=== PATIENT | female | born 1990 | race Caucasian/White ===

== ENCOUNTER 2017-11-20 19:17 | Inpatient (IN) ==
[2017-11-20] MEDS ORDERED: ONDANSETRON 4 MG/2 ML VIAL IVP ONE (19:25)
[2017-11-20] MEDS ORDERED: Sodium Chloride 0.9% 1,000 ML PRIMARY IV ONE ×2 (19:25→22:50)
[2017-11-20 20:13] LABS: BASOPHILS # (AUTO) 0.08 10*3/UL; BASOPHILS % (AUTO) 0.5 % (0-1); EOSINOPHILS # (AUTO) 0.01 10*3/UL; EOSINOPHILS % (AUTO) 0.1 % (0-8); Hematocrit [HCT] 38.1 % (37.0-47.0); Hemoglobin [HGB] 13.4 g/dL (12.0-16.0); LYMPHOCYTES # (AUTO) 1.47 10*3/uL; MEAN CORPUSCULAR HEMOGLOBIN 26.5 PG (27-31); MEAN CORPUSCULAR HGB CONC 35.2 g/dL (33-37); MEAN CORPUSCULAR VOLUME 75.4 FL (81-99); MEAN PLATELET VOLUME 9.4 FL (7.4-12.2); MONOCYTES # (AUTO) 1.18 10*3/UL (0.3-0.8); MONOCYTES % (AUTO) 7.7 % (5-15); NEUTROPHILS # (AUTO) 12.55 10*3/UL; NEUTROPHILS % (AUTO) 81.7 % (50-80); RED BLOOD COUNT 5.05 10^6/uL (4.20-5.40)
[2017-11-20 20:14] LABS: PLATELET MORPHOLOGY COMMENT NORMAL MORPHOLOGY (NORM); RBC MORPHOLOGY COMMENT NORMAL MORPHOLOGY (NORM); WBC MORPHOLOGY COMMENT NORMAL MORPHOLOGY (NORM)
[2017-11-20 20:14] LABS: VENOUS PH 7.26 (7.32-7.42)
[2017-11-20] MEDS ORDERED: MORPHINE SULFATE 2 MG/1 ML IVP ONE (20:14)
[2017-11-20 20:23] LABS: BUN/CREATININE RATIO 20.76 (6-20); SERUM ALBUMIN 4.9 g/dL (3.5-4.8)
[2017-11-20] MEDS ORDERED: INSULIN REGULAR, HUMAN 100 UNIT/1 ML - 3 ML SUBCUT ONE (20:42)
--- NOTE | 2017-11-20 20:42 | PDOC ---
General Adult HPI - General Chief Complaint: Abdomen Pain Stated Complaint: VOMITING, ABD. PAIN WITH BODY ACHES Date Seen by Provider: 11/20/17 Time Seen by Provider: 20:05 Source: POSITIVE: Patient Exam Limitations: POSITIVE: No limitations Nurse's Notes Reviewed & Considered: Yes - History of Present Illness Initial Comment: The patient is a 27-year-old female who presents to the emergency department with abdominal pain, nausea and vomiting and concern of possible DKA. She has a type I diabetic since the age of 14. She states that since this morning she has had increased nausea and vomiting and generalized abdominal pain. She states that her blood sugars have been running pretty good for most of the day in the 130s. This evening when she checked her blood sugar was over 400. She states that generally when she feels like this she is in DKA. She just recently moved to the area from [place]. She was apparently hospitalized in [place] approximately 10 days ago with DKA. She also was diagnosed with a bladder infection of some type at that time too. She states that she is still currently taking the antibiotics prescribed when she was discharged from the hospital. She denies any fevers or chills. She states that she has a history of chronic kidney disease however she does not require dialysis. She also has hypertension, hyperlipidemia, hypothyroidism, asthma. Have you received a tetanus shot in the past 10 years?: Yes - Patient Home Medications Home Medications: Home Medications Aripiprazole 15 mg PO DAILY 11/20/17 Beclomethasone Dipropionate [Qvar] 2 inh IH BID 11/20/17 Famotidine 40 mg PO DAILY 11/20/17 Fluoxetine HCl 10 mg PO 0900 11/20/17 Lamotrigine 200 mg PO 209911/20/17 Levothyroxine Sodium [Levothroid] 50 mcg PO DAILY 11/20/17 Metoclopramide HCl 10 mg PO TID 11/20/17 Ondansetron HCl 8 mg PO Q8HR PRN 11/20/17 Promethazine HCl 25 mg PO Q6H 11/20/17 Propranolol HCl 10 mg PO BID 11/20/17 Ranitidine HCl 150 mg PO 209911/20/17 - Patient Allergies Allergies/Adverse Reactions: Allergies 3 Allergy/AdvReac Type Severity Reaction Status Date / Time No Known Allergies Allergy Unverified 11/20/17 19:54 Past Medical History - heen HEENT History: Denies History Cardiovascular History: Hypertension, Hyperlipidemia Respiratory History: Asthma Gastrointestinal History: Other (please comment) Additional Gastrointestinal History: fatty liver disease Genitourinary History: Renal Failure Additional Genitourinary History: chronic kindey disease Endocrine History: Type 1 Diabetes, Hypothyroidism Musculoskeletal History: Denies History Neurological History: Denies History Blood Disorders: Denies History Psychiatric History: Depression, Anxiety Disorders Female Reproductive History: Denies History Obstetrical History: Denies History Cancer History: Denies History In Past Year Been Physically Harmed or Verbally Threatened: No History of MDRO: No Tobacco Use: Never Smoker In the Past 12 Months, Have Used or Abuse Any Substance: None Significant Family History: No pertinent family hx Past Medical History Reviewed: Reviewed - No Changes ROS - Limitations ROS Limitations: No Limitations Constitution: DENIES: Chills, Fever Cardiovascular: REPORTS: Denies Cardiac Symptoms Respiratory: REPORTS: Denies Resp Symptoms Neurological: REPORTS: Denies Neuro Symptoms Gastrointestinal: REPORTS: Abdominal Pain, Nausea, Vomitting, Diarrhea. DENIES : Black Stools, Bloody Stools Musculoskeletal: REPORTS: Denies MS Symptoms Genitourinary: DENIES: Dysuria, Difficulty Urinating Eyes: REPORTS: Denies Symptoms ENT: REPORTS: Denies Symptoms Skin: DENIES: Rash General Adult Exam - General Appearance General Appearance: POSITIVE: Alert, Cooperative, No Acute Distress - HEENT HEENT: POSITIVE: Head Inspection Nml, Eyes Inspection Nml, Ears Inspection Nml, Pharynx Inspect. Nml, Dry Mucous Membranes - Neck Neck: POSITIVE: Normal Inspection. NEGATIVE: Lymphadenopathy - Respiratory Respiratory: POSITIVE: No Respiratory Distress, Breath Sounds Normal - Cardiovascular Cardiovascular: POSITIVE: Regular Rate & Rhythm, No Murmur Peripheral Pulses: Dorsalis-pedis (R): 2+, Dorsalis-pedis (L): 2+ - Abdomen Abdomen: Soft: (All Quadrants), Normal Bowel Sounds: (All Quadrants), No Guarding: (All Quadrants), No Rebound: (All Quadrants), No Distention: (All Quadrants) Additional Abdominal Details: Generalized abdominal tenderness without guarding or rebound tenderness, no palpable mass. - Skin Skin: POSITIVE: Normal Color, No Rash - Extremities Extremity: Normal ROM: (All Extremities), Normal Inspection: (All Extremities) - Neurological / Psychological Neurological: POSITIVE: Oriented X3, Motor Normal, Sensation Normal General Adult Progress - Results Reviewed by me Xrays/CTs/US Reviewed by me: Yes Discussed with Radiologist: Yes Radiology Findings: CT scan of the abdomen and pelvis without IV contrast reveals a small left-sided ovarian cyst with a small amount of free pelvic fluid , no other acute findings per radiologist. Lab Results Reviewed by Me: Yes Lab Results:: Laboratory Results 3 11/20/17 11/20/17 11/20/17 20:05 20:10 20:10 WBC RBC Hgb Hct MCV MCH MCHC RDW Std Deviation RDW Coeff of Marcello Plt Count MPV Immature Gran % (Auto) Neut % (Auto) Lymph % (Auto) [place] % (Auto) Eos % (Auto) Baso % (Auto) Immature Gran # (Auto) Neut # (Auto) Lymph # (Auto) [place] # (Auto) Eos # (Auto) Baso # (Auto) WBC Morphology Comment Plt Morphology Comment RBC Morph Comment VBG pH 7.26 L VBG pCO2 27 L VBG HCO3 12 L VBG Base Excess -15 L Sodium Potassium Chloride Carbon Dioxide Anion Gap BUN Creatinine Estimated GFR BUN/Creatinine Ratio Glucose Calculated Osmolality Calcium Magnesium 1.7 Total Bilirubin AST ALT Alkaline Phosphatase C-Reactive Protein 2.4 H Total Protein Albumin Globulin Albumin/Globulin Ratio Serum HCG, Qual Negative Ur Collection Type Urine Color Urine Clarity Urine pH Ur Specific [place] Urine Protein Urine Glucose (UA) Urine Ketones Urine Occult Blood Urine Nitrate Urine Bilirubin Urine Urobilinogen Ur Leukocyte Esterase Urine RBC Urine WBC Ur Squamous Epith Cells Ur Renal Epithelial Cell Urine Crystals Urine Bacteria Urine Casts Urine Mucus Urine Trichomonas Urine Yeast Ur Culture Indicated? 3 11/20/17 11/20/17 11/20/17 20:10 20:10 20:51 WBC 15.35 H RBC 5.05 Hgb 13.4 Hct 38.1 MCV 75.4 L MCH 26.5 L MCHC 35.2 RDW Std Deviation 38.4 L RDW Coeff of Marcello 14.2 Plt Count 470 H MPV 9.4 Immature Gran % (Auto) 0.4 Neut % (Auto) 81.7 H Lymph % (Auto) 9.6 L [place] % (Auto) 7.7 Eos % (Auto) 0.1 Baso % (Auto) 0.5 Immature Gran # (Auto) 0.06 Neut # (Auto) 12.55 Lymph # (Auto) 1.47 [place] # (Auto) 1.18 H Eos # (Auto) 0.01 Baso # (Auto) 0.08 WBC Morphology Comment Normal morphology Plt Morphology Comment Normal morphology RBC Morph Comment Normal morphology VBG pH VBG pCO2 VBG HCO3 VBG Base Excess Sodium 130 L Potassium 4.0 Chloride 93 L Carbon Dioxide 9 L Anion Gap 28 H BUN 54 H Creatinine 2.6 H Estimated GFR 22 BUN/Creatinine Ratio 20.76 H Glucose 681 H* Calculated Osmolality 316.0 H Calcium 9.5 Magnesium Total Bilirubin 0.8 AST 42 H ALT 79 H Alkaline Phosphatase 196 H C-Reactive Protein Total Protein 8.2 H Albumin 4.9 H Globulin 3.3 Albumin/Globulin Ratio 1.40 Serum HCG, Qual Ur Collection Type Voided specimen Urine Color Yellow Urine Clarity Slightly cloudy Urine pH 5.0 Ur Specific [place] 1.015 Urine Protein >300 A Urine Glucose (UA) 500 Urine Ketones 40 Urine Occult Blood Moderate H Urine Nitrate Negative Urine Bilirubin Negative Urine Urobilinogen 0.2 Ur Leukocyte Esterase Negative Urine RBC 5-10 Urine WBC None Ur Squamous Epith Cells Moderate Ur Renal Epithelial Cell None Urine Crystals None Urine Bacteria Few Urine Casts None Urine Mucus Few Urine Trichomonas None Urine Yeast Few H Ur Culture Indicated? Culture not set CBC and BMP: 11/20/17 20:10 11/21/17 03:46 - Patient's Progress MDM / ED Course: An IV was established. Initial venous blood gas reveals a pH of 7.26. Her initial blood sugar is 650. She did receive 1 L bolus of normal saline for initial fluid resuscitation. She also received Zofran 4 mg IV. She was given a 7 unit bolus of normal saline followed by an insulin drip at 0.1 units per kilogram per hour. Her blood work does reveal an elevated white blood cell count 15,000. Her abdominal pain and elevated white count was thought to be secondary to DKA however CT scan of the abdomen and pelvis without contrast was ordered. The subsequent showed a small left-sided ovarian cyst with no other acute findings per radiologist. Her blood work also reveals a sodium of 130, blood sugar of 680, potassium of 4.0, anion gap of 28, creatinine of 2.1. Findings were discussed with the patient and her family. Patient will be admitted for treatment for DKA. Dr. Klein has agreed to admit the patient to the ICU. - Consult Counseled: POSITIVE: Patient, Family, RE: Lab Results, RE: Radiology Results, RE : DX, RE: Need for F/U Patient Care Time - Estimated PCT Patient Care Time (In Minutes): 35 Vital Signs - Recent Vital Signs Vital Signs: Vital Signs (Last 8 hours) Pulse 11/20/17 21:58 120 H - VS Reviewed Vital Signs Reviewed: Yes Discharge Clinical Impression: DKA (diabetic ketoacidoses), Renal insufficiency Discharge Disposition: Admit to Inpatient Condition: Serious Date Decision to Admit to Inpatient: 11/20/17 Time Decision to Admit to Inpatient: 21:00
[2017-11-20] MEDS ORDERED: DEXTROSE 31 GM GEL PO PRN (20:43)
[2017-11-20] MEDS ORDERED: Glucagon Inj Vial 1 MG/ML VIAL IM PRN (20:43)
[2017-11-20] MEDS ORDERED: DEXTROSE 50%-WATER SYRINGE 50 ML SYRINGE IVP PRN (20:43)
[2017-11-20] MEDS ORDERED: Insulin Regular Inj 100 UNIT in Sodium Chloride 0.9% 99 ML IV SCH (20:45)
[2017-11-20 20:54] LABS: BILIRUBIN,URINE NEGATIVE (NEG); CLARITY,URINE Slightly Cloudy (CLEAR); COLOR,URINE YELLOW (Y); GLUCOSE, URINE (UA) 500 mg/dL (NEG); OCCULT BLOOD,URINE MODERATE (NEG); PROTEIN,URINE >300 mg/dl (NEG); UROBILINOGEN,URINE 0.2 EU/dL (0.2)
[2017-11-20] MEDS ORDERED: diphenhydrAMINE 50 MG/1 ML VIAL IVP ONE (20:54)
[2017-11-20 20:59] LABS: URINE SAMPLE TYPE VOIDED SPECIMEN
[2017-11-20 21:00] LABS: BACTERIA,URINE FEW; SQUAMOUS EPITHELIAL CELL,UR MODERATE; YEAST,URINE FEW
--- NOTE | 2017-11-20 21:51 | DI ---
History: ITS.REASON abdominal pain, elevated WBC Physician Notes: Tech Comments: Exam: CT ABDOMEN + PELVIS Without Contrast Comparison: None available FINDINGS: The lung bases are clear. Status post cholecystectomy. The liver, adrenal glands, kidneys, spleen, pancreas and abdominal aorta appear within limits on noncontrast imaging. No renal stones, hydronephrosis or evidence of ureteral or bladder stone. No bowel dilation or free air. Normal caliber appendix without secondary signs. Very small pelvic free fluid. Possible 2 cm cyst left ovary. IMPRESSION: Status post cholecystectomy. Very small pelvic free fluid. Possible 2 cm cyst left ovary.
--- NOTE | 2017-11-20 22:19 | PDOC ---
HPI - History of Present Illness Date of Service: 11/20/17 Time of Service: 23:25 Chief Complaint: Vomiting that started yesterday high blood sugar today History of Present Illness: This is a 27 years old female with medical history significant for history of diabetes type I since age 14 she is on insulin pump, hypertension, history of fatty liver, depression, PTSD, gastroparesis and also neuropathy who came into the hospital with history of vomiting and abdominal pain she said the vomiting started in the afternoon yesterday she vomited like 3 times and at that time she decided to switch her insulin pump to subcutaneous NovoLog and she said this is what she's been told in the past she had gave herself total of 8 units last night and today this morning she felt weak she continued to vomit she didn' t eat and she kept checking her blood sugar her blood sugar was acceptable in the morning however later on the afternoon it started to go to the 400s could not bring it down and because of that she came into the ER. In the ER she was found to be in diabetic ketoacidosis she was given insulin, fluid and she was admitted. She somewhat better compared to came in but she complained from abdominal pain felt in the epigastric area. No diarrhea. No shortness of breath no fever. She said she was in [place] about 10 days ago she had DKA and urinary tract infection also. She moved to the area recently from [place] she said like she is been admitted to hospitals about 6 times this year already. Past Medical History Medical History: 1. Diabetes type I on insulin, normally on a insulin pump she switch over to subcutaneous insulin last night. 2. Hypothyroidism. 3. Depression and PTSD. 4. History of recent urinary tract infection. 5. History of fatty liver according to her, she had liver biopsy before. 6. history of gastroparesis. 7. history of peripheral neuropathy. 8. History of hypertension and tachycardia Surgical History: 1. History of cholecystectomy. 2. History of previous bone spur surgery Family History: Reviewed an Not Pertinent Past Social History: She does not smoke does not drink nor drugs. She moved recently to the area from [place]. Tobacco Use: Never Smoker In the Past 12 Months, Have Used or Abuse Any of the Following Substance: None Alcohol Use: None Medication / Allergies Home Medications: Home Medications 3 Medication Instructions Recorded Confirmed Type Aripiprazole 15 mg PO DAILY 11/20/17 11/20/17 History Beclomethasone Dipropionate [Qvar] 2 inh IH BID 11/20/17 11/20/17 History Famotidine 40 mg PO DAILY 11/20/17 11/20/17 History Fluoxetine HCl 10 mg PO 0900 11/20/17 11/20/17 History Lamotrigine 200 mg PO 2100 11/20/17 11/20/17 History Levothyroxine Sodium [Levothroid] 50 mcg PO DAILY 11/20/17 11/20/17 History Metoclopramide HCl 10 mg PO TID 11/20/17 11/20/17 History Ondansetron HCl 8 mg PO Q8HR PRN 11/20/17 11/20/17 History Promethazine HCl 25 mg PO Q6H 11/20/17 11/20/17 History Propranolol HCl 10 mg PO BID 11/20/17 11/20/17 History Ranitidine HCl 150 mg PO 2100 11/20/17 11/20/17 History Allergies/Adverse Reactions: Allergies 3 Allergy/AdvReac Type Severity Reaction Status Date / Time No Known Allergies Allergy Unverified 11/20/17 19:54 Review of Systems - Review of Systems All Systems: Reviewed & No Additional Complaints Except as Stated Exam - Vitals Vital Signs: Vital Signs Temperature 98.4 F Temperature Source Temporal Artery Scan Pulse Rate [Pulse Oximeter] 127 Respiratory Rate 20 Blood Pressure [Left Arm] 117/82 Pulse Ox 96 Oxygen Delivery Method Room Air Height 5 ft 1 in Weight 135 lb - General Additional General Exam Details: Looks tired - Head Head Exam: Normal Inspection - Eye Eye Exam: POSITIVE: Normal Appearance - ENT ENT Exam: POSITIVE: Normal Exam, Mucous Membranes Dry - Neck Neck Exam: Normal Inspection - Respiratory Respiratory Exam: POSITIVE: Clear to Auscultation - Bilaterally - Cardiovascular Cardiovascular Exam: POSITIVE: RRR - GI/Abdominal GI/Abdominal Exam: POSITIVE: Normal Bowel Sounds, Non Distended, Soft Additional GI/Abdominal Exam Details: Minimal tenderness in the epigastrium noted - Rectal Rectal Exam: POSITIVE: Deferred - External Exam: POSITIVE: Deferred Exam: POSITIVE: Deferred - Extremities Extremities Exam: POSITIVE: Normal Inspection - Back Back Exam: POSITIVE: Normal Inspection - Neurological Neurological Exam: POSITIVE: Alert, Oriented x 3, CN II-XII Intact, No Facial Droop, Speech Intact / Clear, Moves All Extremities Equally - Psychiatric Psychiatric Exam: POSITIVE: Normal Affect Results - Labs CBC and BMP: 11/21/17 07:21 11/21/17 07:21 - Imaging Status: Report Reviewed by Me (CT abdoemn tatus post cholecystectomy. Very small pelvic free fluid. Possible 2 cm cyst left ovary.) Assessment and Plan - Patient Problems (1) DKA (diabetic ketoacidoses) Current Visit: Yes Status: Acute Comment: We'll give another bolus of fluid she got one bolus of fluid in the ER. Will continue with IV drip insulin. We'll check her blood sugar every hour and will order repeat chemistries. I did speak with the eICU about her. Once her blood sugar drop below 250 will switch her to D5 water Code(s): E13.10 - Other specified diabetes mellitus with ketoacidosis without coma (2) Hypothyroidism Current Visit: Yes Status: Acute Comment: Continue previous medications Code(s): E03.9 - Hypothyroidism, unspecified (3) Hypertension Current Visit: Yes Status: Acute Comment: We'll resume her medication in the morning Code(s): I10 - Essential (primary) hypertension (4) Depression Current Visit: Yes Status: Acute Comment: Continue previous medications Code(s): F32.9 - Major depressive disorder, single episode, unspecified (5) Abnormal LFTs Current Visit: Yes Status: Acute Comment: She said she had biopsy today and she has fatty liver. She had had hepatitis screen and she was negative. We'll try to get records from [facility] and see what her numbers then. Code(s): R94.5 - Abnormal results of liver function studies (6) Renal insufficiency Current Visit: Yes Status: Acute Comment: Not sure whether this is acute or chronic or acute on chronic. Hopefully to improve with hydration. Will repeat it. Although she mentioned to the ER physician that she's been told that she has some issues with her kidneys but when I talked to her she said it was her liver rather than the kidneys. I think we'll get records from [facility] and see what's her baseline level. Code(s): N28.9 - Disorder of kidney and ureter, unspecified
[2017-11-20] MEDS ORDERED: Sodium Chloride 0.9% 500 ML IV ONE (22:56)
[2017-11-20] MEDS ORDERED: Sodium Chloride 0.9% 1,000 ML IV SCH (23:00)
[2017-11-20] MEDS ORDERED: DOCUSATE 100 MG CAPSULE PO PRN (23:39)
[2017-11-20] MEDS ORDERED: LIDOCAINE W/ SODIUM BICARB 0.5 ML SYR SUBD PRN (23:39)
[2017-11-20] MEDS ORDERED: CALCIUM CARBONATE 500 MG (TUMS) CHEWABLE TABLET PO PRN (23:39)
[2017-11-20] MEDS ORDERED: ONDANSETRON 4 MG/2 ML VIAL IVP PRN (23:39)
[2017-11-20] MEDS: MORPHINE SULFATE 2 MG/1 ML IVP PRN (23:40)
[2017-11-21 00:10] LABS: BUN/CREATININE RATIO 22.38 (6-20)
[2017-11-21] MEDS: D5-1/2NS 1,000 ML PRIMARY IV SCH ×3 (02:35→13:30)
[2017-11-21 04:00] LABS: BUN/CREATININE RATIO 22.77 (6-20)
[2017-11-21] MEDS: diphenhydrAMINE 25 MG CAPSULE PO PRN ×2 (04:26→14:25)
[2017-11-21] MEDS: MORPHINE SULFATE 2 MG/1 ML IVP PRN ×4 (04:30→20:13)
[2017-11-21] MEDS ORDERED: LEVOTHYROXINE 50 MCG TABLET PO SCH (05:30)
[2017-11-21 07:25] LABS: BASOPHILS # (AUTO) 0.05 10*3/UL; BASOPHILS % (AUTO) 0.4 % (0-1); EOSINOPHILS # (AUTO) 0.08 10*3/UL; EOSINOPHILS % (AUTO) 0.6 % (0-8); Hematocrit [HCT] 29.3 % (37.0-47.0); Hemoglobin [HGB] 10.2 g/dL (12.0-16.0); LYMPHOCYTES # (AUTO) 2.07 10*3/uL; MEAN CORPUSCULAR HEMOGLOBIN 26.6 PG (27-31); MEAN CORPUSCULAR HGB CONC 34.8 g/dL (33-37); MEAN CORPUSCULAR VOLUME 76.5 FL (81-99); MEAN PLATELET VOLUME 8.9 FL (7.4-12.2); MONOCYTES # (AUTO) 0.91 10*3/UL (0.3-0.8); MONOCYTES % (AUTO) 7.2 % (5-15); NEUTROPHILS # (AUTO) 9.53 10*3/UL; NEUTROPHILS % (AUTO) 75.3 % (50-80); RED BLOOD COUNT 3.83 10^6/uL (4.20-5.40)
[2017-11-21 07:27] LABS: PLATELET MORPHOLOGY COMMENT NORMAL MORPHOLOGY (NORM); RBC MORPHOLOGY COMMENT NORMAL MORPHOLOGY (NORM); WBC MORPHOLOGY COMMENT NORMAL MORPHOLOGY (NORM)
[2017-11-21 07:30] LABS: VENOUS PH 7.32 (7.32-7.42)
[2017-11-21 07:37] LABS: BUN/CREATININE RATIO 21.87 (6-20); SERUM ALBUMIN 3.1 g/dL (3.5-4.8)
[2017-11-21] MEDS ORDERED: MAGNESIUM OXIDE 400 MG TABLET PO ONE (08:15)
--- NOTE | 2017-11-21 08:23 | PDOC(PROG) ---
Date and Time of Service: 11/21/2017 8:21 AM Interval History: Subjective She said she still feel weak, no nausea or vomiting since being here. Still have abdominal pain in the epigastrium and requesting morphine. Objective : Data - Labs CBC and BMP: 11/21/17 07:21 11/21/17 12:07 Objective : Exam - General General Appearance: No Acute Distress, Cooperative - Head Head Exam: Normal Inspection - Eye Eye Exam: Normal Appearance - ENT ENT Exam: Normal Exam - Neck Neck Exam: Normal Inspection - Respiratory Respiratory Exam: Clear to Auscultation - Bilaterally - Cardiovascular Cardiovascular Exam: RRR - GI/Abdominal GI/Abdominal Exam: Normal Bowel Sounds, Non Tender, Non Distended, Soft, No Organomegaly - Rectal Rectal Exam: Deferred - External Exam: Deferred Exam: Deferred - Extremities Extremities Exam: Normal Inspection - Back Back Exam: Normal Inspection - Neurological Neurological Exam: Alert, Oriented x 3, No Facial Droop, Speech Intact / Clear, Moves All Extremities Equally - Psychiatric Psychiatric Exam: Normal Affect Assessment and Plan - Patient Problems (1) DKA (diabetic ketoacidoses) Current Visit: Yes Status: Acute Comment: This is improving. I think when she eats will see whether she tolerate diet and if things are stable and as she closed her gap I think we may try switching her to subcutaneous insulin later on today. Code(s): E13.10 - Other specified diabetes mellitus with ketoacidosis without coma (2) Hypothyroidism Current Visit: Yes Status: Acute Comment: Same medication Code(s): E03.9 - Hypothyroidism, unspecified (3) Hypertension Current Visit: Yes Status: Acute Comment: Continue propranolol Code(s): I10 - Essential (primary) hypertension (4) Depression Current Visit: Yes Status: Acute Comment: Same med Code(s): F32.9 - Major depressive disorder, single episode, unspecified (5) Abnormal LFTs Current Visit: Yes Status: Acute Comment: We'll try to get records from [place] and see where her levels before. Code(s): R94.5 - Abnormal results of liver function studies (6) Renal insufficiency Current Visit: Yes Status: Acute Comment: Her kidney function seems to be improving. So likely she has some acute renal component. Not sure if there is a chronic component we'll see what records from [place] will show. Code(s): N28.9 - Disorder of kidney and ureter, unspecified
[2017-11-21] MEDS: Metoclopramide Tab 10 MG TAB PO SCH ×2 (08:39→15:46)
[2017-11-21] MEDS ORDERED: LISINOPRIL 5 MG TABLET PO SCH (09:00)
[2017-11-21] MEDS ORDERED: FLUOXETINE HCL 10 MG PO SCH (09:00)
[2017-11-21] MEDS ORDERED: POTASSIUM CHLORIDE 20 MEQ TAB PO SCH ×2 (09:00→21:00)
[2017-11-21] MEDS ORDERED: FLUoxetine 20 MG CAPSULE PO SCH (09:00)
[2017-11-21] MEDS ORDERED: BECLOMETHASONE DIPROPIONATE 40 MCG IH SCH (09:00)
[2017-11-21] MEDS ORDERED: Propranolol Tab 10 MG TAB PO SCH ×2 (09:00→21:00)
[2017-11-21] MEDS ORDERED: ARIPIPRAZOLE 15 MG PO SCH (09:00)
[2017-11-21] MEDS ORDERED: Insulin Glargine SoloStar Inj 100 UNIT/ML INSULN.PEN SUBCUT ONE ×2 (10:08→21:00)
[2017-11-21] MEDS ORDERED: Insulin Lispro Flexpen 300 UNIT/3 ML INSULN.PEN SUBCUT SCH (11:00)
[2017-11-21 12:35] LABS: BUN/CREATININE RATIO 19.37 (6-20)
[2017-11-21] MEDS ORDERED: Sodium Chloride 0.9% 1,000 ML IV SCH (14:15)
--- NOTE | 2017-11-21 14:52 | DI ---
US Abdomen Limited,11/21/2017 7:00 AM: Clinical History: Abdominal pain and elevated LFTs. Previous Exam: None at this facility. Findings: Multiple grayscale and color Doppler sonographic images are obtained through the right upper quadrant , and demonstrates normal hepatic parenchyma. Patient is status post cholecystectomy. Visualized portions of the pancreas are grossly normal. There is no pericholecystic fluid nor stones. The right kidney measured 9.3 centers in length without hydronephrosis nor nephrolithiasis. The aorta was grossly normal. Impression: Normal right upper quadrant ultrasound.
[2017-11-21] MEDS: Insulin Lispro Flexpen 300 UNIT/3 ML INSULN.PEN SUBCUT SCH ×3 (15:43→20:35)
[2017-11-21 16:52] LABS: BUN/CREATININE RATIO 16.47 (6-20)
[2017-11-21] MEDS ORDERED: Glucagon Inj Vial 1 MG/ML VIAL IM PRN (17:32)
[2017-11-21] MEDS ORDERED: DEXTROSE 50%-WATER SYRINGE 50 ML SYRINGE IVP PRN (17:32)
[2017-11-21] MEDS ORDERED: DOCUSATE 100 MG CAPSULE PO PRN (17:32)
[2017-11-21] MEDS ORDERED: Lactated Ringers 1,000 ML PRIMARY IV SCH (17:32)
[2017-11-21] MEDS ORDERED: CALCIUM CARBONATE 500 MG (TUMS) CHEWABLE TABLET PO PRN (17:32)
[2017-11-21] MEDS ORDERED: ONDANSETRON 4 MG/2 ML VIAL IVP PRN (17:32)
[2017-11-21] MEDS ORDERED: diphenhydrAMINE 25 MG CAPSULE PO PRN (17:32)
[2017-11-21] MEDS ORDERED: DEXTROSE 31 GM GEL PO PRN (17:32)
[2017-11-21] MEDS ORDERED: LIDOCAINE W/ SODIUM BICARB 0.5 ML SYR SUBD PRN (17:32)
[2017-11-21] MEDS ORDERED: LORazepam 1 MG TABLET PO PRN (18:59)
[2017-11-21] MEDS ORDERED: diphenhydrAMINE HCL 12.5 MG/5 ML UD CUP PO PRN (20:06)
[2017-11-21] MEDS ORDERED: Metoclopramide Tab 10 MG TAB PO SCH (21:00)
[2017-11-21] MEDS ORDERED: lamoTRIgine 100 MG TABLET PO SCH ×2 (21:00)
[2017-11-21] MEDS ORDERED: FAMOTIDINE 20 MG TABLET PO SCH ×2 (21:00)
[2017-11-21] MEDS ORDERED: Insulin Glargine SoloStar Inj 100 UNIT/ML INSULN.PEN SUBCUT SCH (21:00)
[2017-11-21] MEDS ORDERED: BECLOMETHASONE DIPROPIONATE IH SCH (21:00)
[2017-11-22] MEDS: MORPHINE SULFATE 2 MG/1 ML IVP PRN ×2 (00:10→04:12)
[2017-11-22 05:14] LABS: BASOPHILS # (AUTO) 0.04 10*3/UL; BASOPHILS % (AUTO) 0.7 % (0-1); EOSINOPHILS # (AUTO) 0.22 10*3/UL; EOSINOPHILS % (AUTO) 3.9 % (0-8); Hematocrit [HCT] 30.1 % (37.0-47.0); LYMPHOCYTES # (AUTO) 2.07 10*3/uL; MEAN CORPUSCULAR HGB CONC 33.2 g/dL (33-37); MEAN CORPUSCULAR VOLUME 78.4 FL (81-99); MEAN PLATELET VOLUME 9.5 FL (7.4-12.2); MONOCYTES # (AUTO) 0.32 10*3/UL (0.3-0.8); MONOCYTES % (AUTO) 5.7 % (5-15); NEUTROPHILS # (AUTO) 2.94 10*3/UL; NEUTROPHILS % (AUTO) 52.4 % (50-80); RED BLOOD COUNT 3.84 10^6/uL (4.20-5.40)
[2017-11-22 05:25] LABS: PLATELET MORPHOLOGY COMMENT NORMAL MORPHOLOGY (NORM); RBC MORPHOLOGY COMMENT NORMAL MORPHOLOGY (NORM); WBC MORPHOLOGY COMMENT NORMAL MORPHOLOGY (NORM)
[2017-11-22] MEDS ORDERED: LEVOTHYROXINE 50 MCG TABLET PO SCH (05:30)
[2017-11-22 05:52] LABS: BUN/CREATININE RATIO 13.12 (6-20); SERUM ALBUMIN 2.7 g/dL (3.5-4.8)
[2017-11-22] MEDS: Insulin Lispro Flexpen 300 UNIT/3 ML INSULN.PEN SUBCUT SCH (06:34)
[2017-11-22] MEDS ORDERED: MAGNESIUM OXIDE 400 MG TABLET PO SCH ×2 (07:00)
[2017-11-22] MEDS ORDERED: Insulin Glargine SoloStar Inj 100 UNIT/ML INSULN.PEN SUBCUT SCH (07:00)
--- NOTE | 2017-11-22 07:45 | DCSUMMARY ---
Hospitalization Summary Admit Date: 11/20/2017 Discharge Date: 11/22/17 Hospital Course: Discharge diagnosis 1. Diabetic ketoacidosis 2. Hypothyroidism 3. Depression and PTSD 4. History of peripheral neuropathy 5. History of hypertension 6. History of tachycardia 7. History of gastroparesis 8. Elevated LFTs probably secondary hepatic glycogenosis or nonalcoholic fatty liver, hepatitis screen and autoimmune panels were sent 9. History of recent urinary tract infection 10. Chronic kidney failure stage III, creatinine around 1.5-1.6 Hospital course This is a 27 years old female with medical history significant for history of diabetes type I since age 14 she is on insulin pump, hypertension, history of fatty liver, depression and PTSD, gastroparesis and neuropathy who came into the hospital with history of vomiting and abdominal pain. She said the afternoon before admission she vomited 3 times and at that time she decided to switch her insulin pump subcutaneous NovoLog and she said this what was she's been told in the past and she gave herself total of 8 units night for admission and the day she came into the hospital she felt weak continued to vomit did not eat much she kept checking her blood sugar blood sugar was acceptable in the morning however late in the afternoon started to get numbers in the 400 could not bring it down and and because of that she came into the ER. In the ER she was found to be in diabetic ketoacidosis was given insulin, fluid and she was admitted. In addition to the vomiting she did complain of abdominal pain mainly in the mid abdomen. Exam when I saw her she was somewhat dehydrated and had tenderness in the midabdomen. A CT of the abdomen was not much remarkable. We put her on IV fluid and IV insulin and replaced her electrolytes. Gradually there was improvement in her symptoms. Her LFTs did go up we did ultrasound of the liver was negative. She told me in the past she had the a liver biopsy and she has been fatty liver. I did obtain copies from her recent admission to [place] and her liver test was done only once but there were normal at that time. On on day of discharge she was feeling much better and did not have symptoms no more abdominal pain she was tolerating diet. She wanted to go home. I did tell her that her liver tests are higher than yesterday. And my preferences for her to stay another night however she told me she really want to go home as she is having reunion with her sister today she feels a lot better and she doesn't have symptoms today. I told her to come in the next day then to recheck her liver function tests because this is only thing that we will do if we kept her, we will check her INR also. I think the elevated LFTs may be secondary to hepatic glycogenosis from the ketoacidosis. Her exam was unremarkable today much better no tenderness at all And she feels much better. So we decided to discharge her and she'll follow-up with her primary. I did tell her that we sent tests for hepatitis and autoimmune hepatitis and her primary need to get those results because they're send out. Since we gave her insulin today that included Lantus I did ask her to recheck her blood sugar more often today just in case she developed hypoglycemia. She will restart her pump before she leaves the hospital, I did ask the dietitian/elementary educator to come in and talk to her and review of her setting and also education. Laboratory Results 11/21/17 11/21/17 11/21/17 Range/Units 12:07 12:07 16:05 WBC (4.8-10.8) 10^3/uL RBC (4.20-5.40) 10^6/uL Hgb (12.0-16.0) g/dL Hct (37.0-47.0) % MCV (81-99) FL MCH (27-31) PG MCHC (33-37) g/dL RDW Std Deviation (39-50) fL RDW Coeff of Marcello (11.5-14.5) % Plt Count (140-350) 10*3/uL MPV (7.4-12.2) FL Immature Gran % (Auto) (0-5) % Neut % (Auto) (50-80) % Lymph % (Auto) (10-50) % [place] % (Auto) (5-15) % Eos % (Auto) (0-8) % Baso % (Auto) (0-1) % Immature Gran # (Auto) 10*3/UL Neut # (Auto) 10*3/UL Lymph # (Auto) 10*3/uL [place] # (Auto) (0.3-0.8) 10*3/UL Eos # (Auto) 10*3/UL Baso # (Auto) 10*3/UL WBC Morphology Comment (NORM) Plt Morphology Comment (NORM) RBC Morph Comment (NORM) Sodium 136 138 (135-145) meq/L Potassium 3.8 3.6 L (3.8-5.2) meq/L Chloride 108 110 (98-112) meq/L Carbon Dioxide 15 L 14 L (23-33) meq/L Anion Gap 13 14 (5-20) BUN 31 H 28 H (7-22) mg/dL Creatinine 1.6 H 1.7 H (0.50-1.20) mg/dL Estimated GFR 39 36 (>60 ml/min/1.73m(2)) BUN/Creatinine Ratio 19.37 16.47 (6-20) Glucose 244 H 226 H (78-110) mg/dL Calculated Osmolality 296.0 H 298.0 H (267-292) mOsm/kg Calcium 8.0 L 8.0 L (8.7-10.7) mg/dL Magnesium (1.6-2.4) mg/dL Total Bilirubin (0.3-1.2) mg/dL AST (8-39) IU/L ALT (9-52) IU/L Alkaline Phosphatase (38-126) IU/L Total Protein (6.1-8.0) g/dL Albumin (3.5-4.8) g/dL Globulin (2.50-4.10) g/dL Albumin/Globulin Ratio (1.3-2.0) mg/g Lipase 28 (23-300) IU/L 11/22/17 11/22/17 11/22/17 Range/Units 04:13 04:13 04:13 WBC 5.61 (4.8-10.8) 10^3/uL RBC 3.84 L (4.20-5.40) 10^6/uL Hgb 10.0 L (12.0-16.0) g/dL Hct 30.1 L (37.0-47.0) % MCV 78.4 L (81-99) FL MCH 26.0 L (27-31) PG MCHC 33.2 (33-37) g/dL RDW Std Deviation 40.8 (39-50) fL RDW Coeff of Marcello 14.7 H (11.5-14.5) % Plt Count 281 (140-350) 10*3/uL MPV 9.5 (7.4-12.2) FL Immature Gran % (Auto) 0.4 (0-5) % Neut % (Auto) 52.4 (50-80) % Lymph % (Auto) 36.9 (10-50) % [place] % (Auto) 5.7 (5-15) % Eos % (Auto) 3.9 (0-8) % Baso % (Auto) 0.7 (0-1) % Immature Gran # (Auto) 0.02 10*3/UL Neut # (Auto) 2.94 10*3/UL Lymph # (Auto) 2.07 10*3/uL [place] # (Auto) 0.32 (0.3-0.8) 10*3/UL Eos # (Auto) 0.22 10*3/UL Baso # (Auto) 0.04 10*3/UL WBC Morphology Comment Normal morphology (NORM) Plt Morphology Comment Normal morphology (NORM) RBC Morph Comment Normal morphology (NORM) Sodium 139 (135-145) meq/L Potassium 4.5 (3.8-5.2) meq/L Chloride 112 (98-112) meq/L Carbon Dioxide 16 L (23-33) meq/L Anion Gap 11 (5-20) BUN 21 (7-22) mg/dL Creatinine 1.6 H (0.50-1.20) mg/dL Estimated GFR 39 (>60 ml/min/1.73m(2)) BUN/Creatinine Ratio 13.12 (6-20) Glucose 276 H (78-110) mg/dL Calculated Osmolality 300.0 H (267-292) mOsm/kg Calcium 8.2 L (8.7-10.7) mg/dL Magnesium 1.5 L (1.6-2.4) mg/dL Total Bilirubin 0.2 L D (0.3-1.2) mg/dL AST 503 H (8-39) IU/L ALT 278 H D (9-52) IU/L Alkaline Phosphatase 234 H (38-126) IU/L Total Protein 5.3 L (6.1-8.0) g/dL Albumin 2.7 L (3.5-4.8) g/dL Globulin 2.6 (2.50-4.10) g/dL Albumin/Globulin Ratio 1.00 L (1.3-2.0) mg/g Lipase (23-300) IU/L Discharge instruction Diet diabetic Activity as started Medications Current Medication(s) 3 Medication Instructions Recorded Confirmed Type Aripiprazole 15 mg PO DAILY 11/20/17 11/20/17 History Beclomethasone Dipropionate [Qvar] 2 inh IH BID 11/20/17 11/20/17 History Famotidine 40 mg PO DAILY 11/20/17 11/20/17 History Fluoxetine HCl 10 mg PO 0900 11/20/17 11/20/17 History Lamotrigine 200 mg PO BEDTIME 11/20/17 11/21/17 History Levothyroxine Sodium [Levothroid] 50 mcg PO DAILY 11/20/17 11/20/17 History Metoclopramide HCl 10 mg PO TID 11/20/17 11/20/17 History Ondansetron HCl 8 mg PO Q8HR PRN 11/20/17 11/20/17 History Propranolol HCl 10 mg PO BID 11/20/17 11/20/17 History Insulin Aspart [Novolog] 100 unit SQ DAILY #1 cartridge 11/22/17 Rx Magnesium Oxide [Mag-Ox] 400 mg PO DAILY #7 tab 11/22/17 Rx Follow-up with her PCP in 1-2 weeks Condition at discharge was stable for discharge Exam - Vitals Vital Signs: Vital Signs Temperature 97.8 F Temperature Source Temporal Artery Scan Pulse Rate [Telemetry] 83 Pulse Rate [Apical] 105 Pulse Rate [Pulse Oximeter] 105 Pulse Rate 83 Respiratory Rate 15 Blood Pressure [Right Arm] 107/72 Blood Pressure [Left Arm] 117/82 Pulse Ox 96 Oxygen Delivery Method Room Air Height 5 ft 1 in Weight 139 lb 6.4 oz - General General Appearance: No Acute Distress, Cooperative - Head Head Exam: Normal Inspection - Eye Eye Exam: POSITIVE: Normal Appearance - ENT ENT Exam: POSITIVE: Normal Exam - Neck Neck Exam: Normal Inspection - Respiratory Respiratory Exam: POSITIVE: Clear to Auscultation - Bilaterally - Cardiovascular Cardiovascular Exam: POSITIVE: RRR - GI/Abdominal GI/Abdominal Exam: POSITIVE: Normal Bowel Sounds, Non Tender, Non Distended, Soft, No Organomegaly - Rectal Rectal Exam: POSITIVE: Deferred - External Exam: POSITIVE: Deferred Exam: POSITIVE: Deferred - Extremities Extremities Exam: POSITIVE: Normal Inspection - Back Back Exam: POSITIVE: Normal Inspection - Neurological Neurological Exam: POSITIVE: Alert, Oriented x 3, CN II-XII Intact, No Facial Droop, Speech Intact / Clear, Moves All Extremities Equally - Psychiatric Psychiatric Exam: POSITIVE: Normal Affect Patient Problems - Patient Problem List (1) DKA (diabetic ketoacidoses) Current Visit: Yes Status: Acute Code(s): E13.10 - Other specified diabetes mellitus with ketoacidosis without coma Category: Medical (2) Hypothyroidism Current Visit: Yes Status: Acute Code(s): E03.9 - Hypothyroidism, unspecified Category: Medical (3) Hypertension Current Visit: Yes Status: Acute Code(s): I10 - Essential (primary) hypertension Category: Medical (4) Depression Current Visit: Yes Status: Acute Code(s): F32.9 - Major depressive disorder , single episode, unspecified Category: Medical (5) Abnormal LFTs Current Visit: Yes Status: Acute Code(s): R94.5 - Abnormal results of liver function studies Category: Medical (6) Renal insufficiency Current Visit: Yes Status: Acute Code(s): N28.9 - Disorder of kidney and ureter, unspecified Category: Medical
[2017-11-22] MEDS ORDERED: FLUoxetine 20 MG CAPSULE PO SCH (09:00)
[2017-11-22] MEDS ORDERED: ARIPIPRAZOLE 15 MG PO SCH (09:00)
[2017-11-22 09:10] LABS: HEP B CORE IGM ANTIBODY Negative (Negative); HEPATITIS B SURFACE AG Negative (Negative)
[2017-11-22 10:05] VITALS: BP 119/89; RESP 14; TEMP 96.8; O2SAT 98
[2017-11-22 10:47] LABS: HEPATITIS A IGM Negative (Negative)
[2017-11-22 16:33] LABS: Anti Smooth Muscle Antibody Negative (Negative)
== END 2017-11-22 10:20 | disposition home or self-care (01) | DRG 639 ==
LOC: ER 19:17 → ICU 21:55 → MED/SURG 11-21 17:06
PROVIDERS: ADMIT Internal Medicine; ATTEND Internal Medicine

== ENCOUNTER 2017-11-25 19:58 | Inpatient (IN) ==
[2017-11-25] MEDS ORDERED: ONDANSETRON 4 MG/2 ML VIAL IVP ONE (20:28)
[2017-11-25] MEDS ORDERED: Sodium Chloride 0.9% 1,000 ML PRIMARY IV ONE ×3 (20:28→23:40)
[2017-11-25] MEDS ORDERED: FAMOTIDINE 20 MG/2 ML VIAL IVP ONE (20:28)
[2017-11-25 20:33] LABS: BASOPHILS # (AUTO) 0.09 10*3/UL; BASOPHILS % (AUTO) 0.8 % (0-1); EOSINOPHILS # (AUTO) 0.42 10*3/UL; EOSINOPHILS % (AUTO) 3.7 % (0-8); Hematocrit [HCT] 35.4 % (37.0-47.0); Hemoglobin [HGB] 12.2 g/dL (12.0-16.0); LYMPHOCYTES # (AUTO) 2.61 10*3/uL; MEAN CORPUSCULAR HEMOGLOBIN 26.8 PG (27-31); MEAN CORPUSCULAR HGB CONC 34.5 g/dL (33-37); MEAN CORPUSCULAR VOLUME 77.8 FL (81-99); MEAN PLATELET VOLUME 9.4 FL (7.4-12.2); MONOCYTES # (AUTO) 0.76 10*3/UL (0.3-0.8); MONOCYTES % (AUTO) 6.7 % (5-15); NEUTROPHILS # (AUTO) 7.45 10*3/UL; NEUTROPHILS % (AUTO) 65.4 % (50-80); RED BLOOD COUNT 4.55 10^6/uL (4.20-5.40)
[2017-11-25 20:39] LABS: BUN/CREATININE RATIO 18.09 (6-20)
[2017-11-25 20:41] LABS: PLATELET MORPHOLOGY COMMENT NORMAL MORPHOLOGY (NORM); RBC MORPHOLOGY COMMENT NORMAL MORPHOLOGY (NORM); WBC MORPHOLOGY COMMENT NORMAL MORPHOLOGY (NORM)
[2017-11-25 21:16] LABS: BILIRUBIN,URINE SMALL (NEG); CLARITY,URINE CLEAR (CLEAR); COLOR,URINE YELLOW (Y); GLUCOSE, URINE (UA) >=1000 mg/dL (NEG); OCCULT BLOOD,URINE MODERATE (NEG); PROTEIN,URINE >300 mg/dl (NEG); UROBILINOGEN,URINE 0.2 EU/dL (0.2)
[2017-11-25 21:18] LABS: URINE SAMPLE TYPE VOIDED SPECIMEN
[2017-11-25] MEDS ORDERED: HYDROmorphone 2 MG/1 ML IVP ONE (21:21)
[2017-11-25 21:22] LABS: BACTERIA,URINE FEW; SQUAMOUS EPITHELIAL CELL,UR MANY; URINE CASTS MANY; WBC,URINE 0-2; YEAST,URINE MODERATE
[2017-11-25 21:38] LABS: VENOUS PH 7.4 (7.32-7.42)
[2017-11-25] MEDS ORDERED: diphenhydrAMINE 50 MG/1 ML VIAL IVP ONE (22:22)
[2017-11-25] MEDS ORDERED: ONDANSETRON 4 MG/2 ML VIAL IVP PRN (23:40)
[2017-11-25] MEDS ORDERED: LIDOCAINE W/ SODIUM BICARB 0.5 ML SYR SUBD PRN (23:40)
[2017-11-25] MEDS ORDERED: CALCIUM CARBONATE 500 MG (TUMS) CHEWABLE TABLET PO PRN (23:40)
[2017-11-25] MEDS ORDERED: DOCUSATE 100 MG CAPSULE PO PRN (23:40)
[2017-11-25] MEDS ORDERED: ACETAMINOPHEN 325 MG TABLET PO PRN (23:40)
[2017-11-26] MEDS: Metoclopramide Inj 10 MG/2 ML VIAL IVP SCH ×5 (00:16→22:50)
[2017-11-26] MEDS: Sodium Chloride 0.9% 1,000 ML PRIMARY IV SCH ×3 (00:16→19:18)
--- NOTE | 2017-11-26 00:23 | PDOC ---
HPI - History of Present Illness Date of Service: 11/26/17 Time of Service: 00:18 Chief Complaint: Abdominal pain with nausea and vomiting History of Present Illness: This very pleasant 27-year-old female who suffers from diabetes mellitus type I , hypothyroidism, and diabetic gastroparesis. She has had assorted amount of emergency room visits and inpatient stays over the last couple of months, including one in [place], in one year on the inpatient side, for abdominal pain and nausea and vomiting. She had emphysematous cystitis which resolved after her hospital stay in [place]. I did review that record in our charts in depth. The patient currently states that her nausea and vomiting is been getting worse over the last 24-48 hours, she just did not respond to her Zofran. She states she has been taking Reglan but is not responding to that. She's been on that Reglan for some time. She does not have any tardive dyskinesia symptoms. She states she had a low-grade fever of around 99F this morning. She states that she has accompanying abdominal pain that is mostly midepigastric in nature. A lipase was negative in the emergency room. The patient has had 3 CT scans, 2 at our facility this month, that of all been negative for pancreatitis. In fact , they've been fairly benign in terms of findings with pelvic free fluid that resolved, and some nonspecific left-sided small bowel enteritis. The patient has requested IV narcotics for pain and states that morphine tends to work the best. She also states that she gets pruritus with narcotic use, and requires IV Benadryl as by mouth Benadryl does not work. She states she did see Dr. Purcell, the sledger in [place], and that she also followed up with urology regarding her emphysematous cystitis. Accompany her complaints are continued liver enzyme elevations. They are improved from prior hospital stay in reviewing her immunology panel shows that she has a weakly positive antinuclear antibody and a negative anti-smooth muscle antibody. She notably has been on an antipsychotic, antidepressant, apparently for hearing voices although she denies any prior history of bipolar disorder or schizophrenia. It is difficult to tease out exacerbating factors. She states that she gets nausea and vomiting and abdominal pain episodes very frequently. Since that she was diagnosed with gastroparesis somewhere around by [place], [place], where she used to reside. She lives here near [place]. She does not smoke. She has not noticed any sediments or foaminess to her urine. She states it looks normal. No decrease in her frequency of urination. Urinalysis was notable for protein spilling. Past Medical History Medical History: 1. Diabetes type I on insulin, normally on a insulin pump. 2. Hypothyroidism. 3. Depression and PTSD. 4. Recent history of emphysematous urinary tract infection/cystitis. 5. Fatty liver disease, apparently had some sort of biopsy in the past with records not available. 6. Diabetic gastroparesis. 7. Peripheral neuropathy related to diabetes. 8. History of hypertension and tachycardia Surgical History: 1. History of cholecystectomy. 2. History of previous bone spur surgery Family History: Reviewed an Not Pertinent Pertinent Family History: She denies any history of diabetes or heart disease in the family. Past Social History: She does not smoke does not drink nor drugs. She moved recently to the area from [place]. She is engaged. Tobacco Use: Never Smoker In the Past 12 Months, Have Used or Abuse Any of the Following Substance: None Alcohol Use: None Medication / Allergies Home Medications: Home Medications 3 Medication Instructions Recorded Confirmed Type Aripiprazole 15 mg PO DAILY 11/20/17 11/25/17 History Beclomethasone Dipropionate [Qvar] 2 inh IH BID 11/20/17 11/25/17 History Famotidine 40 mg PO DAILY 11/20/17 11/25/17 History Fluoxetine HCl 10 mg PO 0900 11/20/17 11/25/17 History Lamotrigine 200 mg PO BEDTIME 11/20/17 11/25/17 History Levothyroxine Sodium [Levothroid] 50 mcg PO DAILY 11/20/17 11/25/17 History Metoclopramide HCl 10 mg PO TID 11/20/17 11/25/17 History Ondansetron HCl 8 mg PO Q8HR PRN 11/20/17 11/25/17 History Propranolol HCl 10 mg PO BID 11/20/17 11/25/17 History Insulin Aspart [Novolog] 100 unit SQ DAILY #1 cartridge 11/22/17 11/25/17 Rx Magnesium Oxide [Mag-Ox] 400 mg PO DAILY #7 tab 11/22/17 11/25/17 Rx Allergies/Adverse Reactions: Allergies 3 Allergy/AdvReac Type Severity Reaction Status Date / Time hydromorphone [From Karolid] AdvReac ITCHING Verified 11/25/17 22:34 Review of Systems - Review of Systems All Systems: Reviewed & No Additional Complaints Except as Stated (I did a 12 point review of systems and is negative other than that discussed in history of present illness and that noted below.) - Gastrointestinal Gastrointestinal / Abdominal: REPORTS: Nausea, Vomiting, Abdominal Pain - Neurological Neurologic: REPORTS: Headache (States that she gets frequent and chronic migraine headaches.) Exam - Vitals Vital Signs: Vital Signs Temperature 96.9 F Temperature Source Temporal Artery Scan Pulse Rate [Pulse Oximeter] 120 Pulse Rate 91 Respiratory Rate 16 Blood Pressure [Left Arm] 114/83 Blood Pressure 108/64 Pulse Ox 95 Oxygen Delivery Method Room Air Height 5 ft 1 in Weight 137 lb 6 oz - General General Appearance: No Acute Distress, Cooperative - Head Head Exam: Normal Inspection, Normocephalic, Atraumatic - Eye Eye Exam: POSITIVE: EOMI, No Scleral Icterus - ENT ENT Exam: POSITIVE: Mucous Membranes Dry - Neck Neck Exam: Normal Inspection, No Tenderness, No Lymphadenopathy, No Thyromegaly , JVP is not Raised - Respiratory Respiratory Exam: POSITIVE: Clear to Auscultation - Bilaterally, Breathing Non Labored, Normal to Percussion and Palpation - Cardiovascular Cardiovascular Exam: POSITIVE: No Murmur, No Clicks, No Gallops, No Rubs, Tachycardia, No JVD - GI/Abdominal GI/Abdominal Exam: POSITIVE: Normal Bowel Sounds, Non Distended, Soft Additional GI/Abdominal Exam Details: Complains of tenderness with palpation in epigastric and right upper quadrant spaces - Rectal Rectal Exam: POSITIVE: Deferred - External Exam: POSITIVE: Deferred Exam: POSITIVE: Deferred - Extremities Extremities Exam: POSITIVE: No Clubbing Present, No Edema Present, No Cyanosis Present - Back Back Exam: POSITIVE: Normal Inspection, CVA Tenderness (R) (Mild) - Neurological Neurological Exam: POSITIVE: Alert, Oriented x 3, No Facial Droop, Speech Intact / Clear, Moves All Extremities Equally - Psychiatric Additional Psychiatric Exam Details: Denies hearing voices at this time. - Integumentary Integumentary Exam: POSITIVE: Normal Color, Warm, Dry, Intact Results - Labs CBC and BMP: 11/25/17 20:15 11/25/17 20:15 Additional Lab Results: Laboratory Results 11/25/17 11/25/17 11/25/17 Range/Units 20:15 20:15 20:15 WBC 11.39 H (4.8-10.8) 10^3/uL RBC 4.55 (4.20-5.40) 10^6/uL Hgb 12.2 (12.0-16.0) g/dL Hct 35.4 L (37.0-47.0) % MCV 77.8 L (81-99) FL MCH 26.8 L (27-31) PG MCHC 34.5 (33-37) g/dL RDW Std Deviation 39.2 (39-50) fL RDW Coeff of Marcello 14.1 (11.5-14.5) % Plt Count 431 H (140-350) 10*3/uL MPV 9.4 (7.4-12.2) FL Immature Gran % (Auto) 0.5 (0-5) % Neut % (Auto) 65.4 (50-80) % Lymph % (Auto) 22.9 (10-50) % [place] % (Auto) 6.7 (5-15) % Eos % (Auto) 3.7 (0-8) % Baso % (Auto) 0.8 (0-1) % Immature Gran # (Auto) 0.06 10*3/UL Neut # (Auto) 7.45 10*3/UL Lymph # (Auto) 2.61 10*3/uL [place] # (Auto) 0.76 (0.3-0.8) 10*3/UL Eos # (Auto) 0.42 10*3/UL Baso # (Auto) 0.09 10*3/UL WBC Morphology Comment Normal morphology (NORM) Plt Morphology Comment Normal morphology (NORM) RBC Morph Comment Normal morphology (NORM) PT (9.7-11.4) secs INR (0.00-5.90) N/A VBG pH (7.32-7.42) VBG pCO2 (45-55) mmHg VBG HCO3 (22-26) mmol/L VBG Base Excess (-2-2) MMOL/L Sodium 132 L D (135-145) meq/L Potassium 3.7 L (3.8-5.2) meq/L Chloride 93 L (98-112) meq/L Carbon Dioxide 26 (23-33) meq/L Anion Gap 13 (5-20) BUN 38 H (7-22) mg/dL Creatinine 2.1 H (0.50-1.20) mg/dL Estimated GFR 28 (>60 ml/min/1.73m(2)) BUN/Creatinine Ratio 18.09 (6-20) Glucose 281 H (78-110) mg/dL Calculated Osmolality 292.0 (267-292) mOsm/kg Calcium 9.5 (8.7-10.7) mg/dL Total Bilirubin 0.5 D (0.3-1.2) mg/dL AST 39 (8-39) IU/L ALT 86 H (9-52) IU/L Alkaline Phosphatase 241 H (38-126) IU/L Troponin I (< 0.040) ng/mL Total Protein 7.4 (6.1-8.0) g/dL Albumin 4.0 (3.5-4.8) g/dL Globulin 3.4 (2.50-4.10) g/dL Albumin/Globulin Ratio 1.10 L (1.3-2.0) mg/g Amylase 78 (30-110) U/L Lipase 170 (23-300) IU/L Serum HCG, Qual Negative Ur Collection Type Urine Color (Y) Urine Clarity (CLEAR) Urine pH (5.0-8.5) Ur Specific [place] (1.005-1.030) Urine Protein (NEG) mg/dl Urine Glucose (UA) (NEG) mg/dL Urine Ketones (NEG) Urine Occult Blood (NEG) Urine Nitrate (NEG) Urine Bilirubin (NEG) Urine Urobilinogen (0.2) EU/dL Ur Leukocyte Esterase (NEG) Urine RBC (NONE) /hpf Urine WBC (NONE) Ur Squamous Epith Cells (NONE) Ur Renal Epithelial Cell (NONE) Urine Crystals Urine Bacteria (NONE) Urine Casts (NONE) Urine Mucus (NONE) Urine Trichomonas (NONE) Urine Yeast (NONE) Ur Culture Indicated? 11/25/17 11/25/17 11/25/17 Range/Units 20:15 20:15 21:17 WBC (4.8-10.8) 10^3/uL RBC (4.20-5.40) 10^6/uL Hgb (12.0-16.0) g/dL Hct (37.0-47.0) % MCV (81-99) FL MCH (27-31) PG MCHC (33-37) g/dL RDW Std Deviation (39-50) fL RDW Coeff of Marcello (11.5-14.5) % Plt Count (140-350) 10*3/uL MPV (7.4-12.2) FL Immature Gran % (Auto) (0-5) % Neut % (Auto) (50-80) % Lymph % (Auto) (10-50) % [place] % (Auto) (5-15) % Eos % (Auto) (0-8) % Baso % (Auto) (0-1) % Immature Gran # (Auto) 10*3/UL Neut # (Auto) 10*3/UL Lymph # (Auto) 10*3/uL [place] # (Auto) (0.3-0.8) 10*3/UL Eos # (Auto) 10*3/UL Baso # (Auto) 10*3/UL WBC Morphology Comment (NORM) Plt Morphology Comment (NORM) RBC Morph Comment (NORM) PT 9.8 (9.7-11.4) secs INR 0.93 (0.00-5.90) N/A VBG pH (7.32-7.42) VBG pCO2 (45-55) mmHg VBG HCO3 (22-26) mmol/L VBG Base Excess (-2-2) MMOL/L Sodium (135-145) meq/L Potassium (3.8-5.2) meq/L Chloride (98-112) meq/L Carbon Dioxide (23-33) meq/L Anion Gap (5-20) BUN (7-22) mg/dL Creatinine (0.50-1.20) mg/dL Estimated GFR (>60 ml/min/1.73m(2)) BUN/Creatinine Ratio (6-20) Glucose (78-110) mg/dL Calculated Osmolality (267-292) mOsm/kg Calcium (8.7-10.7) mg/dL Total Bilirubin (0.3-1.2) mg/dL AST (8-39) IU/L ALT (9-52) IU/L Alkaline Phosphatase (38-126) IU/L Troponin I < 0.012 (< 0.040) ng/mL Total Protein (6.1-8.0) g/dL Albumin (3.5-4.8) g/dL Globulin (2.50-4.10) g/dL Albumin/Globulin Ratio (1.3-2.0) mg/g Amylase (30-110) U/L Lipase (23-300) IU/L Serum HCG, Qual Ur Collection Type Voided specimen Urine Color Yellow (Y) Urine Clarity Clear (CLEAR) Urine pH 5.0 (5.0-8.5) Ur Specific [place] 1.020 (1.005-1.030) Urine Protein >300 A (NEG) mg/dl Urine Glucose (UA) >=1000 (NEG) mg/dL Urine Ketones Trace A (NEG) Urine Occult Blood Moderate H (NEG) Urine Nitrate Negative (NEG) Urine Bilirubin Small (NEG) Urine Urobilinogen 0.2 (0.2) EU/dL Ur Leukocyte Esterase Negative (NEG) Urine RBC 3-5 (NONE) /hpf Urine WBC 0-2 (NONE) Ur Squamous Epith Cells Many (NONE) Ur Renal Epithelial Cell None (NONE) Urine Crystals None Urine Bacteria Few (NONE) Urine Casts Many (NONE) Urine Mucus Few (NONE) Urine Trichomonas None (NONE) Urine Yeast Moderate H (NONE) Ur Culture Indicated? Culture not set 11/25/17 Range/Units 21:27 WBC (4.8-10.8) 10^3/uL RBC (4.20-5.40) 10^6/uL Hgb (12.0-16.0) g/dL Hct (37.0-47.0) % MCV (81-99) FL MCH (27-31) PG MCHC (33-37) g/dL RDW Std Deviation (39-50) fL RDW Coeff of Marcello (11.5-14.5) % Plt Count (140-350) 10*3/uL MPV (7.4-12.2) FL Immature Gran % (Auto) (0-5) % Neut % (Auto) (50-80) % Lymph % (Auto) (10-50) % [place] % (Auto) (5-15) % Eos % (Auto) (0-8) % Baso % (Auto) (0-1) % Immature Gran # (Auto) 10*3/UL Neut # (Auto) 10*3/UL Lymph # (Auto) 10*3/uL [place] # (Auto) (0.3-0.8) 10*3/UL Eos # (Auto) 10*3/UL Baso # (Auto) 10*3/UL WBC Morphology Comment (NORM) Plt Morphology Comment (NORM) RBC Morph Comment (NORM) PT (9.7-11.4) secs INR (0.00-5.90) N/A VBG pH 7.40 (7.32-7.42) VBG pCO2 38 L (45-55) mmHg VBG HCO3 31 H (22-26) mmol/L VBG Base Excess -2 (-2-2) MMOL/L Sodium (135-145) meq/L Potassium (3.8-5.2) meq/L Chloride (98-112) meq/L Carbon Dioxide (23-33) meq/L Anion Gap (5-20) BUN (7-22) mg/dL Creatinine (0.50-1.20) mg/dL Estimated GFR (>60 ml/min/1.73m(2)) BUN/Creatinine Ratio (6-20) Glucose (78-110) mg/dL Calculated Osmolality (267-292) mOsm/kg Calcium (8.7-10.7) mg/dL Total Bilirubin (0.3-1.2) mg/dL AST (8-39) IU/L ALT (9-52) IU/L Alkaline Phosphatase (38-126) IU/L Troponin I (< 0.040) ng/mL Total Protein (6.1-8.0) g/dL Albumin (3.5-4.8) g/dL Globulin (2.50-4.10) g/dL Albumin/Globulin Ratio (1.3-2.0) mg/g Amylase (30-110) U/L Lipase (23-300) IU/L Serum HCG, Qual Ur Collection Type Urine Color (Y) Urine Clarity (CLEAR) Urine pH (5.0-8.5) Ur Specific [place] (1.005-1.030) Urine Protein (NEG) mg/dl Urine Glucose (UA) (NEG) mg/dL Urine Ketones (NEG) Urine Occult Blood (NEG) Urine Nitrate (NEG) Urine Bilirubin (NEG) Urine Urobilinogen (0.2) EU/dL Ur Leukocyte Esterase (NEG) Urine RBC (NONE) /hpf Urine WBC (NONE) Ur Squamous Epith Cells (NONE) Ur Renal Epithelial Cell (NONE) Urine Crystals Urine Bacteria (NONE) Urine Casts (NONE) Urine Mucus (NONE) Urine Trichomonas (NONE) Urine Yeast (NONE) Ur Culture Indicated? - Imaging Status: Image Pending (I have ordered an acute abdominal series and I have also ordered an EKG.) Assessment and Plan - Patient Problems (1) Acute renal failure Current Visit: Yes Status: Acute Code(s): N17.9 - Acute kidney failure, unspecified Qualifiers: Acute renal failure type: with acute tubular necrosis Qualified Code(s): N17.0 - Acute kidney failure with tubular necrosis (2) Diabetes mellitus type I Current Visit: Yes Status: Acute Code(s): E10.9 - Type 1 diabetes mellitus without complications Qualifiers: Diabetes mellitus complication status: with kidney complications Diabetes mellitus complication detail: with chronic kidney disease Chronic kidney disease stage: stage 3 (moderate) Qualified Code(s): E10.22 - Type 1 diabetes mellitus with diabetic chronic kidney disease; N18.3 - Chronic kidney disease, stage 3 (moderate) (3) Diabetic gastroparesis Current Visit: Yes Status: Acute Code(s): E11.43 - Type 2 diabetes mellitus with diabetic autonomic (poly)neuropathy; K31.84 - Gastroparesis (4) Diabetic neuropathy Current Visit: Yes Status: Acute Code(s): E11.40 - Type 2 diabetes mellitus with diabetic neuropathy, unspecified Qualifiers: Diabetes mellitus type: type 1 Diabetes mellitus complication detail: diabetic autonomic neuropathy Qualified Code(s): E10.43 - Type 1 diabetes mellitus with diabetic autonomic (poly)neuropathy (5) Hypothyroidism Current Visit: Yes Status: Chronic Code(s): E03.9 - Hypothyroidism, unspecified Qualifiers: Hypothyroidism type: acquired Qualified Code(s): E03.9 - Hypothyroidism, unspecified (6) Hypertension Current Visit: Yes Status: Chronic Code(s): I10 - Essential (primary) hypertension Qualifiers: Hypertension type: essential hypertension Qualified Code(s): I10 - Essential (primary) hypertension (7) Hypokalemia Current Visit: Yes Status: Acute Code(s): E87.6 - Hypokalemia (8) Fatty liver disease, nonalcoholic Current Visit: Yes Status: Acute Code(s): K76.0 - Fatty (change of) liver, not elsewhere classified - Assessment / Plan Additional Assessment/Plan Details: At this time I will go ahead and admit the patient. Rehydrate with normal saline and replace potassium. Check labs this a.m. This is a very complex case. The patient appears to be in acute renal failure and based on the BUN to creatinine ratio, it is suggestive of acute tubular necrosis. She has hyaline casts on her urinalysis. She has protein as well which could be an issue. Given that her creatinine is in the twos, I think that she may need to be considered for very cautious YUKI inhibitor use due to proteinuria, but I don't think that should be done without a manufacturing recruiter. If the patient remains in acute renal failure into the morning after 2 L of IV fluids in the emergency room and a liter that I will give her an bolus and continued IV fluids with normal saline, we may need to consider looking at transfer to an acute facility with a manufacturing recruiter to help manage. The other thing I worry about here is that the patient has severe gastroparesis. It's not really responsive to Reglan therapy which leaves us with very few options. I don't think that narcotics are necessarily going to help the issue, and given that the patient requests IV Benadryl, and suspect that there could be some seeking here. All that being said, with severe gastroparesis like this, the patient probably warrants consideration for PEG tube placement and gastroenterology follow-up. A PEG tube to be used for abdominal decompression. I'm going to go ahead and get a urine drug screen as well to make sure there is no evidence of cannabis use. Cyclic vomiting syndrome with marijuana is certainly something that can be in the differential here as well. I will check an acute abdominal series to make sure there is no evidence of obstruction although I doubt this with the fairly benign abdominal exam and normal bowel tones. Given atypical presentations of myocardial syndromes as acute coronary syndrome in diabetics, I will go ahead and check an EKG and a troponin. In addition, I' ll look at the EKG for any possibility of QT prolongation. The patient needs careful teasing out of her psychiatric issues and medication management as she is on several things that could prolong her QT time. She would benefit from very small piece meals through the day and may even benefit from specialty gastroparesis clinics at a [facility] setting. Given elevation in liver enzymes, I do think that we need to make sure there is no evidence of, bile duct obstruction despite the absence of her gallbladder, so I will get an abdominal MRI scan in the morning to look at that. She will be nothing by mouth until that's done. Given her immunologic workup on prior admission, she does not have any evidence of autoimmune hepatitis at this point. I will workup for autoimmune hepatitis, type II. Those labs will be send outs and will be drawn later this morning. In terms of her diabetes, check blood sugars before meals and at bedtime and let her manage it with the pump. At this point she is not in DKA so I think that would be reasonable. I discussed the above plan with the patient and her fianc and they agreed.
[2017-11-26] MEDS ORDERED: DIAZEPAM 10 MG/2 ML (5 MG/1 ML) CARPUJECT IVP ONE ×2 (00:44→10:48)
--- NOTE | 2017-11-26 00:58 | EKG ---
[address] [place] [id number] Measurements Intervals [place] Rate: 97 P: 58 [place]: 156 QRS: 64 QRSD: 90 T: 64 QT: 384 QTc: 438 Interpretive Statements SINUS RHYTHM Poor R-wave progression; cannot rule out ANTERIOR MYOCARDIAL INFARCTION [30 ms Q WAVE IN V3/V4, OR R < 0.2 mV IN V4], OF INDETERMINATE AGE vs thin body habitus No previous ECG available for comparison Electronically Signed On 11-26-17 07:35:03 MDT by Dao Dewitt MD [email or web address]
[2017-11-26 00:59] LABS: AMPHETAMINE SCREEN NEGATIVE (NEG); CANNABINOID SCREEN,URINE NEGATIVE (NEG); COCAINE SCREEN NEGATIVE (NEG); METHADONE URINE SCREEN NEGATIVE (NEG); METHAMPHETAMINES SCREEN,URINE NEGATIVE (NEG); OPIATE SCREEN,URINE POSITIVE (NEG); URINE SAMPLE TYPE CLEAN CATCH URINE
[2017-11-26] MEDS: MORPHINE SULFATE 4 MG/1 ML IVP PRN ×5 (01:22→22:31)
--- NOTE | 2017-11-26 02:14 | PDOC ---
Nausea/Vomiting/Diarrhea HPI - General Chief Complaint: Abdomen Pain Stated Complaint: vomiting, abdominal discomfort Date Seen by Provider: 11/25/17 Time Seen by Provider: 20:20 Source: POSITIVE: Patient, Old records Exam Limitations: POSITIVE: No limitations Nurse's Notes Reviewed & Considered: Yes - History of Present Illness Initial Comments: The patient is a 27-year-old female. She presents to the emergency room with reported 2 day history of nausea and vomiting. She states she has "vomited about 12 times today ". She's also had some vague paraumbilical discomfort. Patient was seen in the emergency room 2 days ago with abdominal discomfort and CTA of the abdomen and pelvis without contrast was read as normal by radiologist at that time. Patient states she started having some vomiting after that ER visit. No fevers. Patient states she continues to have some periumbilical discomfort. No diarrhea. No melena, hematochezia, hematemesis, dysuria or hematuria. Patient has a history of type I diabetes mellitus controlled with an insulin pump with NovoLog. Patient states that earlier today her blood sugar was around 400. She did give herself 10 units of NovoLog subcutaneously around 7 PM this evening. Patient states she had a cholecystectomy in 2016. Patient states she has a past history of chronic renal failure. Review of old records shows that on 11/21/2017 she had a BUN of 31 and a creatinine of 1.6. On 11/23/2017 BUN was 15 and creatinine 1.6. Body Location Affected: REPORTS: Abdomen Timing: REPORTS: Gradual, Getting Worse Duration: >24 hours (Approximately 48 hours) Severity: Moderate Quality: REPORTS: "Pain" (Some paraumbilical and epigastric discomfort) Abdominal Pain Onset Location: REPORTS: Epigastric, Periumbilical Abdominal Pain Radiation: REPORTS: No radiation Context: REPORTS: None Modifying Factors: improves with: Vomiting Associated Symptoms: REPORTS: Vomiting (Patient states she's vomited 12 times in the past 24 hours), Epigastric Pain Similar Symptoms Previously: Yes Recent Care Received: REPORTS: Recently Seen, Treated by MD (As above) Any Prior Injuries Related to Current Complaint?: No - Patient Home Medications Home Medications: Home Medications Aripiprazole 15 mg PO DAILY 11/20/17 Beclomethasone Dipropionate [Qvar] 2 inh IH BID 11/20/17 Famotidine 40 mg PO DAILY 11/20/17 Fluoxetine HCl 10 mg PO 0900 11/20/17 Lamotrigine 200 mg PO BEDTIME 11/20/17 Levothyroxine Sodium [Levothroid] 50 mcg PO DAILY 11/20/17 Metoclopramide HCl 10 mg PO TID 11/20/17 Ondansetron HCl 8 mg PO Q8HR PRN 11/20/17 Propranolol HCl 10 mg PO BID 11/20/17 Insulin Aspart [Novolog] 100 unit SQ DAILY #1 cartridge 11/22/17 Magnesium Oxide [Mag-Ox] 400 mg PO DAILY #7 tab 11/22/17 - Patient Allergies Allergies/Adverse Reactions: Allergies 3 Allergy/AdvReac Type Severity Reaction Status Date / Time hydromorphone [From Dilaudid] AdvReac ITCHING Verified 11/25/17 22:34 Past Medical History - heen HEENT History: Denies History Cardiovascular History: Hypertension, Hyperlipidemia Respiratory History: Asthma Gastrointestinal History: Other (please comment) Additional Gastrointestinal History: fatty liver disease Genitourinary History: Renal Failure Additional Genitourinary History: chronic kidney disease Endocrine History: Type 1 Diabetes, Hypothyroidism Musculoskeletal History: Denies History Prosthesis or Implant: No Neurological History: Denies History Blood Disorders: Denies History Psychiatric History: Depression, Anxiety Disorders History of Sexually Transmitted Diseases: No Female Reproductive History: Denies History Obstetrical History: Denies History Cancer History: Denies History In Past Year Been Physically Harmed or Verbally Threatened: No History of MDRO: No History of Other Communicable Diseases: No Tobacco Use: Never Smoker In the Past 12 Months, Have Used or Abuse Any Substance: None Previous Surgical History: Yes Type / Date of Surgery: [place] Significant Family History: No pertinent family hx Past Medical History Reviewed: Reviewed - No Changes ROS - Limitations ROS Limitations: No Limitations Constitution: REPORTS: Denies Symptoms Cardiovascular: REPORTS: Denies Cardiac Symptoms Respiratory: REPORTS: Denies Resp Symptoms Neurological: REPORTS: Denies Neuro Symptoms Gastrointestinal: REPORTS: Abdominal Pain, Nausea, Vomitting Endocrine: REPORTS: Denies Symptoms Musculoskeletal: REPORTS: Denies MS Symptoms Genitourinary: REPORTS: Denies Symptoms Eyes: REPORTS: Denies Symptoms ENT: REPORTS: Denies Symptoms Skin: REPORTS: Denies Skin Symptoms Lympathic: REPORTS: Denies Lympathic Symptoms Immunologic: POSITIVE: Denies Symptoms Psychiatric: POSITIVE: Denies Psych Symptoms Nausea/Vomiting/Diarrhea Exam - General Appearance General Appearance: POSITIVE: Alert, Cooperative, No Acute Distress, No Evidence of Trauma - HEENT HEENT: POSITIVE: Head Inspection Nml, Eyes Inspection Nml, Ears Inspection Nml, Nose Inspection Nml, Oral/Dental Inspect. Nml, Pharynx Inspect. Nml, PERRL, EOMI - Neck Neck: POSITIVE: Supple, Normal Inspection, Non Tender - Respiratory Respiratory: POSITIVE: No Respiratory Distress, Breath Sounds Normal, Chest Non- Tender - Cardiovascular Cardiovascular: POSITIVE: Regular Rate and Rhythm, Heart Sounds Normal, Equal Pulses, Strong Pulses Peripheral Pulses: Radial (R): 2+, Radial (L): 2+ - Chest Chest: POSITIVE: Non Tender - Abdomen Abdomen: Soft: (All Quadrants), Normal Bowel Sounds: (All Quadrants), Denies Tenderness: (All Quadrants) (some epigastric discomfort), No Splenomegaly: (All Quadrants), No Hepatomegaly: (All Quadrants), No Guarding: (All Quadrants), No Rebound: (All Quadrants), No Palpable Pulse: (All Quadrants), No Palpabale Mass : (All Quadrants), No Distention: (All Quadrants), No Rigidity: (All Quadrants) Additional Abdominal Details: Abdominal examination shows bowel sounds to be active. Patient does complain of some mild poorly localized epigastric discomfort on direct palpation. No masses, organomegaly or rebound. 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 As Tested, Motor Normal, Sensation Normal Images - Complete Complete: 1 - Expresses mild discomfort on firm palpation here N/V/D Progress - Results Reviewed by me Xrays/CTs/US Reviewed by me: Yes Discussed with Radiologist: Yes Radiology Findings: Results of CT scan abdomen and pelvis without contrast done 2 days ago reviewed Lab Results Reviewed by Me: Yes (amylase and lipase normal; urinalysis normal except for proteinuria) CBC and BMP: 11/25/17 20:15 11/25/17 20:15 Lab Results:: Laboratory Results 3 11/25/17 11/25/17 11/25/17 00:58 20:15 20:15 WBC 11.39 H RBC 4.55 Hgb 12.2 Hct 35.4 L MCV 77.8 L MCH 26.8 L MCHC 34.5 RDW Std Deviation 39.2 RDW Coeff of Marcello 14.1 Plt Count 431 H MPV 9.4 Immature Gran % (Auto) 0.5 Neut % (Auto) 65.4 Lymph % (Auto) 22.9 [place] % (Auto) 6.7 Eos % (Auto) 3.7 Baso % (Auto) 0.8 Immature Gran # (Auto) 0.06 Neut # (Auto) 7.45 Lymph # (Auto) 2.61 [place] # (Auto) 0.76 Eos # (Auto) 0.42 Baso # (Auto) 0.09 WBC Morphology Comment Normal morphology Plt Morphology Comment Normal morphology RBC Morph Comment Normal morphology PT INR VBG pH VBG pCO2 VBG HCO3 VBG Base Excess Sodium 132 L D Potassium 3.7 L Chloride 93 L Carbon Dioxide 26 Anion Gap 13 BUN 38 H Creatinine 2.1 H Estimated GFR 28 BUN/Creatinine Ratio 18.09 Glucose 281 H Calculated Osmolality 292.0 Calcium 9.5 Total Bilirubin 0.5 D AST 39 ALT 86 H Alkaline Phosphatase 241 H Troponin I Total Protein 7.4 Albumin 4.0 Globulin 3.4 Albumin/Globulin Ratio 1.10 L Amylase 78 Lipase 170 Serum HCG, Qual Ur Collection Type Clean catch urine Urine Color Urine Clarity Urine pH Ur Specific [place] U Specif Grav (Refrac) 1.020 Urine Protein Urine Glucose (UA) Urine Ketones Urine Occult Blood Urine Nitrate Urine Bilirubin Urine Urobilinogen Ur Leukocyte Esterase Urine RBC Urine WBC Ur Squamous Epith Cells Ur Renal Epithelial Cell Urine Crystals Urine Bacteria Urine Casts Urine Mucus Urine Trichomonas Urine Yeast Ur Culture Indicated? Urine Opiates Screen Positive H Ur Buprenorphine Negative Ur Oxycodone Screen Negative Urine Methadone Screen Negative Ur Propoxyphene Screen Negative Barbiturate Screen Negative U Tricyclic Antidepress Negative Phencyclidine Screen Negative Amphetamines Screen Negative U Methamphetamines Scrn Negative Benzodiazepines Screen Negative Cocaine Screen Negative U Marijuana (THC) Screen Negative 3 11/25/17 11/25/17 11/25/17 20:15 20:15 20:15 WBC RBC Hgb Hct MCV MCH MCHC RDW Std Deviation RDW Coeff of Marcello Plt Count MPV Immature Gran % (Auto) Neut % (Auto) Lymph % (Auto) [place] % (Auto) Eos % (Auto) Baso % (Auto) Immature Gran # (Auto) Neut # (Auto) Lymph # (Auto) [place] # (Auto) Eos # (Auto) Baso # (Auto) WBC Morphology Comment Plt Morphology Comment RBC Morph Comment PT 9.8 INR 0.93 VBG pH VBG pCO2 VBG HCO3 VBG Base Excess Sodium Potassium Chloride Carbon Dioxide Anion Gap BUN Creatinine Estimated GFR BUN/Creatinine Ratio Glucose Calculated Osmolality Calcium Total Bilirubin AST ALT Alkaline Phosphatase Troponin I < 0.012 Total Protein Albumin Globulin Albumin/Globulin Ratio Amylase Lipase Serum HCG, Qual Negative Ur Collection Type Urine Color Urine Clarity Urine pH Ur Specific [place] U Specif Grav (Refrac) Urine Protein Urine Glucose (UA) Urine Ketones Urine Occult Blood Urine Nitrate Urine Bilirubin Urine Urobilinogen Ur Leukocyte Esterase Urine RBC Urine WBC Ur Squamous Epith Cells Ur Renal Epithelial Cell Urine Crystals Urine Bacteria Urine Casts Urine Mucus Urine Trichomonas Urine Yeast Ur Culture Indicated? Urine Opiates Screen Ur Buprenorphine Ur Oxycodone Screen Urine Methadone Screen Ur Propoxyphene Screen Barbiturate Screen U Tricyclic Antidepress Phencyclidine Screen Amphetamines Screen U Methamphetamines Scrn Benzodiazepines Screen Cocaine Screen U Marijuana (THC) Screen 3 11/25/17 11/25/17 21:17 21:27 WBC RBC Hgb Hct MCV MCH MCHC RDW Std Deviation RDW Coeff of Marcello Plt Count MPV Immature Gran % (Auto) Neut % (Auto) Lymph % (Auto) [place] % (Auto) Eos % (Auto) Baso % (Auto) Immature Gran # (Auto) Neut # (Auto) Lymph # (Auto) [place] # (Auto) Eos # (Auto) Baso # (Auto) WBC Morphology Comment Plt Morphology Comment RBC Morph Comment PT INR VBG pH 7.40 VBG pCO2 38 L VBG HCO3 31 H VBG Base Excess -2 Sodium Potassium Chloride Carbon Dioxide Anion Gap BUN Creatinine Estimated GFR BUN/Creatinine Ratio Glucose Calculated Osmolality Calcium Total Bilirubin AST ALT Alkaline Phosphatase Troponin I Total Protein Albumin Globulin Albumin/Globulin Ratio Amylase Lipase Serum HCG, Qual Ur Collection Type Voided specimen Urine Color Yellow Urine Clarity Clear Urine pH 5.0 Ur Specific [place] 1.020 U Specif Grav (Refrac) Urine Protein >300 A Urine Glucose (UA) >=1000 Urine Ketones Trace A Urine Occult Blood Moderate H Urine Nitrate Negative Urine Bilirubin Small Urine Urobilinogen 0.2 Ur Leukocyte Esterase Negative Urine RBC 3-5 Urine WBC 0-2 Ur Squamous Epith Cells Many Ur Renal Epithelial Cell None Urine Crystals None Urine Bacteria Few Urine Casts Many Urine Mucus Few Urine Trichomonas None Urine Yeast Moderate H Ur Culture Indicated? Culture not set Urine Opiates Screen Ur Buprenorphine Ur Oxycodone Screen Urine Methadone Screen Ur Propoxyphene Screen Barbiturate Screen U Tricyclic Antidepress Phencyclidine Screen Amphetamines Screen U Methamphetamines Scrn Benzodiazepines Screen Cocaine Screen U Marijuana (THC) Screen - Patient's Progress Pain Medication Addressed: POSITIVE: Yes (Patient given a milligram of Dilaudid with good pain relief; patient did develop some itching following this and was given 25 mg of Benadryl with resolution.) Re-examine Time: 23:10 Re-Examine Comment: Patient given about 1-1/2 L of normal saline IV. Presently BUN is 38 and creatinine is 2.1. Venous blood gases are normal. Patient feeling better after hydration. Patient also given Zofran IV. No vomiting while in the emergency room. Status: POSITIVE: Improved, Re-Examined - Consult Consult (If Yes, Name of Consulting MD & Time Called): Yes (Dr. Chaparro, hospitalist [id number],) Consulting MD will see pt:: POSITIVE: [facility] [place] Admit Counseled: POSITIVE: Patient, RE: Lab Results, RE: DX, RE: Need for F/U Patient Care Time - Estimated PCT Patient Care Time (In Minutes): 60 Vital Signs - Recent Vital Signs Vital Signs: Vital Signs (Last 8 hours) Temp Pulse Pulse Resp BP BP Pulse Ox 11/26/17 00:57 98 11/25/17 23:51 96.9 F 91 16 108/64 95 11/25/17 23:40 97 11/25/17 19:59 97.1 F 120 H 18 114/83 99 - VS Reviewed Vital Signs Reviewed: Yes Discharge Clinical Impression: Nausea and vomiting, Renal insufficiency, Renal failure (ARF), acute on chronic Discharge Disposition: Admit to Inpatient Condition: Fair Date Decision to Admit to Inpatient: 11/25/17 Time Decision to Admit to Inpatient: 23:10
[2017-11-26] MEDS: diphenhydrAMINE 50 MG/1 ML VIAL IVP PRN ×4 (03:03→20:29)
[2017-11-26] MEDS: LEVOTHYROXINE 50 MCG TABLET PO SCH (04:29)
[2017-11-26 05:25] LABS: BUN/CREATININE RATIO 19.33 (6-20)
[2017-11-26] MEDS ORDERED: DEXTROSE 50%-WATER SYRINGE 50 ML SYRINGE ONE (05:30)
[2017-11-26] MEDS: DEXTROSE 50%-WATER SYRINGE 50 ML SYRINGE IVP ONE ×2 (05:35→09:36)
[2017-11-26] MEDS ORDERED: BECLOMETHASONE DIPROPIONATE IH SCH (09:00)
[2017-11-26] MEDS ORDERED: FLUOXETINE HCL 10 MG PO SCH ×2 (09:00→19:00)
[2017-11-26] MEDS ORDERED: ARIPIPRAZOLE 15 MG PO SCH (09:00)
[2017-11-26] MEDS: FAMOTIDINE 40 MG TABLET PO SCH (09:38)
[2017-11-26] MEDS: Propranolol Tab 10 MG TAB PO SCH ×2 (09:38→20:23)
[2017-11-26] MEDS: MAGNESIUM OXIDE 400 MG TABLET PO SCH (09:38)
[2017-11-26] MEDS: INSULIN ASPART 100 UNIT SQ SCH (09:38)
[2017-11-26] MEDS ORDERED: Loperamide Tab 2 MG TABLET PO PRN ×2 (10:57→11:38)
[2017-11-26] MEDS ORDERED: CHOLESTYRAMINE/SUCROSE 4 GM PACKET PO ONE (11:00)
--- NOTE | 2017-11-26 12:19 | DI ---
XR ABDOMEN ACUTE 2/ABD 1/CXR,11/26/2017 12:26 AM: Clinical History: Abdominal pain and gastroparesis. Previous Exam: None available. Findings: Routine acute abdominal series is performed, and demonstrates clear lungs. The cardiomediastinum is u nremarkable. Patient is status post cholecystectomy. There is air throughout the colon. Bony structures are unremarkable. No pathologic calcifications are seen. Impression: No acute disease.
[2017-11-26] MEDS ORDERED: DEXTROSE 50%-WATER SYRINGE 50 ML SYRINGE IVP PRN (17:46)
[2017-11-26] MEDS ORDERED: Insulin Sliding Scale Protocol SUBCUT PRN (17:46)
[2017-11-26] MEDS ORDERED: DEXTROSE 31 GM GEL PO PRN (17:46)
[2017-11-26] MEDS: ARIPIPRAZOLE 15 MG PO SCH (19:18)
[2017-11-26] MEDS: lamoTRIgine 100 MG TABLET PO SCH (20:23)
[2017-11-26] MEDS: FLUoxetine 20 MG CAPSULE PO SCH (20:23)
[2017-11-26] MEDS: BECLOMETHASONE DIPROPIONATE IH SCH (21:14)
[2017-11-26] MEDS ORDERED: DEXTROSE 50%-WATER SYRINGE 50 ML SYRINGE IVP ONE (23:47)
[2017-11-27] MEDS: MORPHINE SULFATE 4 MG/1 ML IVP PRN ×5 (02:32→22:18)
[2017-11-27] MEDS: diphenhydrAMINE 50 MG/1 ML VIAL IVP PRN ×4 (02:32→20:37)
[2017-11-27] MEDS: Sodium Chloride 0.9% 1,000 ML PRIMARY IV SCH ×2 (02:33→20:01)
[2017-11-27] MEDS: Metoclopramide Inj 10 MG/2 ML VIAL IVP SCH ×3 (04:45→18:17)
[2017-11-27 05:24] LABS: BASOPHILS # (AUTO) 0.04 10*3/UL; BASOPHILS % (AUTO) 0.4 % (0-1); EOSINOPHILS # (AUTO) 0.65 10*3/UL; EOSINOPHILS % (AUTO) 6.9 % (0-8); Hematocrit [HCT] 30.1 % (37.0-47.0); Hemoglobin [HGB] 9.5 g/dL (12.0-16.0); LYMPHOCYTES # (AUTO) 2.57 10*3/uL; MEAN CORPUSCULAR HEMOGLOBIN 26.4 PG (27-31); MEAN CORPUSCULAR HGB CONC 31.6 g/dL (33-37); MEAN CORPUSCULAR VOLUME 83.6 FL (81-99); MEAN PLATELET VOLUME 9.8 FL (7.4-12.2); MONOCYTES # (AUTO) 0.44 10*3/UL (0.3-0.8); MONOCYTES % (AUTO) 4.7 % (5-15); NEUTROPHILS # (AUTO) 5.74 10*3/UL; NEUTROPHILS % (AUTO) 60.6 % (50-80)
[2017-11-27 05:33] LABS: BUN/CREATININE RATIO 14.28 (6-20); SERUM ALBUMIN 2.8 g/dL (3.5-4.8)
[2017-11-27 05:56] LABS: PLATELET MORPHOLOGY COMMENT NORMAL MORPHOLOGY (NORM); RBC MORPHOLOGY COMMENT NORMAL MORPHOLOGY (NORM); WBC MORPHOLOGY COMMENT NORMAL MORPHOLOGY (NORM)
[2017-11-27] MEDS: BECLOMETHASONE DIPROPIONATE IH SCH ×2 (11:46→22:05)
[2017-11-27] MEDS: MAGNESIUM OXIDE 400 MG TABLET PO SCH (11:47)
[2017-11-27] MEDS: Propranolol Tab 10 MG TAB PO SCH ×2 (11:47→20:00)
[2017-11-27] MEDS: LEVOTHYROXINE 50 MCG TABLET PO SCH (11:47)
[2017-11-27] MEDS: ARIPIPRAZOLE 15 MG PO SCH (11:47)
[2017-11-27] MEDS: FLUoxetine 20 MG CAPSULE PO SCH (11:47)
[2017-11-27] MEDS: FAMOTIDINE 40 MG TABLET PO SCH (11:47)
[2017-11-27] MEDS: CHOLESTYRAMINE/SUCROSE 4 GM PACKET PO SCH (11:50)
[2017-11-27] MEDS: INSULIN ASPART 100 UNIT SQ SCH (11:53)
--- NOTE | 2017-11-27 12:54 | DI ---
MRI Abdomen WO Contrast,11/27/2017 7:00 AM: Clinical History: Vomiting, history of elevated liver function tests and cholecystectomy. Previous Exam: None at this facility. Findings: Multiplanar MR images are obtained through the abdomen as part of an MRCP protocol. In and out of pha se imaging was also performed. There is no evidence of fatty infiltration of the liver on this exam. The adrenal glands were unremarkable. Large and small bowel loops are not well evaluated. The common bile duct is normal. Left and right hepatic ducts are normal as well. There are is no ascites identified. Patient is status post cholecystectomy. The kidneys are normal as far as evaluated. Impression: Normal common bile duct.
[2017-11-27] MEDS ORDERED: SUPREP BOWEL PREP KIT PO ONE (13:06)
--- NOTE | 2017-11-27 15:02 | PDOC(PROG) ---
Date and Time of Service: 11/27/2017, 1459 Interval History: Feeling better, still has intermittent abdominal pain. Diarrhea is much better on cholestyramine. No nausea or vomiting. I discussed with surgery yesterday and we will continue with prep for probable colonoscopy tomorrow for chronic diarrhea. I do think it would be a little safer to do here given her type I diabetes. Objective : Data - Labs CBC and BMP: 11/27/17 04:30 11/27/17 04:30 Additional Lab Results: 11/26/17 11/27/17 04:33 04:30 Calcium 7.6 L Total Bilirubin 0.1 L D AST 36 ALT 60 H Alkaline Phosphatase 132 H Total Protein 5.6 L Albumin 2.8 L Globulin 2.8 Albumin/Globulin Ratio 1.00 L TSH 1.33 Free T4 0.58 L Not sure really how to interpret the TSH being normal and free T4 being low, could reflect possible noncompliance versus a dosing that needs to be a little bit higher albeit not by much. Objective : Exam - General General Appearance: No Acute Distress, Cooperative Additional General Exam Details: Vital Signs - Last Taken Temperature 97.6 F 11/27/17 13:00 Pulse Rate 78 11/27/17 13:00 Respiratory Rate 16 11/27/17 13:00 Blood Pressure 110/82 11/27/17 13:00 Pulse Ox 97 11/27/17 13:00 - Eye Eye Exam: No Scleral Icterus - ENT ENT Exam: Mucous Membranes Moist - Respiratory Respiratory Exam: Clear to Auscultation - Bilaterally, Breathing Non Labored - Cardiovascular Cardiovascular Exam: RRR, No Murmur, No Clicks, No Gallops, No Rubs, No JVD - GI/Abdominal GI/Abdominal Exam: Normal Bowel Sounds, Non Tender, Non Distended, Soft - Extremities Extremities Exam: No Clubbing Present, No Edema Present, No Cyanosis Present - Neurological Neurological Exam: Alert, Oriented x 3, No Facial Droop, Speech Intact / Clear, Moves All Extremities Equally Assessment and Plan - Patient Problems (1) Chronic diarrhea Current Visit: Yes Status: Acute Code(s): K52.9 - Noninfective gastroenteritis and colitis, unspecified (2) Diabetes mellitus type I Current Visit: Yes Status: Acute Code(s): E10.9 - Type 1 diabetes mellitus without complications Qualifiers: Diabetes mellitus complication status: with kidney complications Diabetes mellitus complication detail: with chronic kidney disease Chronic kidney disease stage: stage 3 (moderate) Qualified Code(s): E10.22 - Type 1 diabetes mellitus with diabetic chronic kidney disease; N18.3 - Chronic kidney disease, stage 3 (moderate) (3) Diabetic gastroparesis Current Visit: Yes Status: Acute Code(s): E11.43 - Type 2 diabetes mellitus with diabetic autonomic (poly)neuropathy; K31.84 - Gastroparesis (4) Diabetic neuropathy Current Visit: Yes Status: Acute Code(s): E11.40 - Type 2 diabetes mellitus with diabetic neuropathy, unspecified Qualifiers: Diabetes mellitus type: type 1 Diabetes mellitus complication detail: diabetic autonomic neuropathy Qualified Code(s): E10.43 - Type 1 diabetes mellitus with diabetic autonomic (poly)neuropathy (5) Hypothyroidism Current Visit: Yes Status: Chronic Code(s): E03.9 - Hypothyroidism, unspecified Qualifiers: Hypothyroidism type: acquired Qualified Code(s): E03.9 - Hypothyroidism, unspecified (6) Hypertension Current Visit: Yes Status: Chronic Code(s): I10 - Essential (primary) hypertension Qualifiers: Hypertension type: essential hypertension Qualified Code(s): I10 - Essential (primary) hypertension (7) Hypokalemia Current Visit: Yes Status: Resolved Code(s): E87.6 - Hypokalemia (8) Fatty liver disease, nonalcoholic Current Visit: Yes Status: Acute Code(s): K76.0 - Fatty (change of) liver, not elsewhere classified (9) Acute renal failure Current Visit: Yes Status: Resolved Code(s): N17.9 - Acute kidney failure, unspecified Qualifiers: Acute renal failure type: with acute tubular necrosis Qualified Code(s): N17.0 - Acute kidney failure with tubular necrosis - Assessment / Plan Additional Assessment/Plan Details: Terms of the TSH and free T4 noted, I think the patient should have repeat TSH and free T4 as an outpatient. The MRI was negative for any common bile duct obstruction. I spoke with surgery yesterday. We will proceed with prepping the patient for possible or probable EGD and colonoscopy tomorrow, to evaluate further this chronic diarrhea and make sure that were not dealing with some sort of inflammatory bowel disease. Very encouraged that the cholestyramine seemed to help with diarrhea. That may be part of the issue here. Could be from prior cholecystectomy with postcholecystectomy diarrhea. I think gastric paresis is playing a role in the patient's abdominal pain as well. My thought on this is to continue to do this workup as an outpatient after colonoscopy is done tomorrow. If all goes well, EGD and colonoscopy are not showing acute issues, then I feel like we should be able to discharged patient home tomorrow afternoon. A lot of that will depend on how the patient responds to the above workup and how her pain persists. We'll check labs in morning. Given the persistence of ALT and AST elevation, I will go ahead and also get a viral hepatitis screening panel
--- NOTE | 2017-11-27 16:56 | CONSULT ---
Consult Note - Consult Consult Date: 11/27/17 Reason for Consult: PreOp Consulation : General Surgery Requesting Physician: Dr. Chaparro Primary Care Provider: JESSE MEADOWS - History of Present Illness History of Present Illness: 27-year-old female who's had a three-week history of nausea vomiting diarrhea. She denies hematochezia hematemesis or melena. Patient cholecystectomy in 2016. She also has type I diabetes. There is no associated crampy abdominal pain though. Review of Systems - Constitutional Constitutional: REPORTS: General Health Fair - Integumentary Integumentary: REPORTS: Negative System Review - Respiratory Respiratory: REPORTS: Other (History of asthma) - Cardiovascular Cardiovascular: REPORTS: Negative System Review - Gastrointestinal Gastrointestinal / Abdominal: REPORTS: See HPI - Genitourinary Genitourinary: REPORTS: Other (States that she does have some renal disease) - Gynecological Gynecological: REPORTS: Negative System Review - Musculoskeletal Musculoskeletal: REPORTS: Negative System Review - Hematlogic / Lymphatic Hematologic / Lymphatic: REPORTS: Negative System Review - Neurological Neurologic: REPORTS: Negative System Review - Psychiatric Psychiatric: REPORTS: Negative System Review Past Medical History Medical History: 1. Diabetes type I on insulin, normally on a insulin pump. 2. Hypothyroidism. 3. Depression and PTSD. 4. Recent history of emphysematous urinary tract infection/cystitis. 5. Fatty liver disease, apparently had some sort of biopsy in the past with records not available. 6. Diabetic gastroparesis. 7. Peripheral neuropathy related to diabetes. 8. History of hypertension and tachycardia Surgical History: 1. History of cholecystectomy. 2. History of previous bone spur surgery Family History: Reviewed an Not Pertinent Pertinent Family History: She denies any history of diabetes or heart disease in the family. Past Social History: She does not smoke does not drink nor drugs. She moved recently to the area from [place]. She is engaged. Tobacco Use: Never Smoker In the Past 12 Months, Have Used or Abuse Any of the Following Substance: None Alcohol Use: None Medication / Allergies Home Medications: Home Medications 3 Medication Instructions Recorded Confirmed Type Aripiprazole 15 mg PO DAILY 11/20/17 11/25/17 History Beclomethasone Dipropionate [Qvar] 2 inh IH BID 11/20/17 11/25/17 History Famotidine 40 mg PO DAILY 11/20/17 11/25/17 History Fluoxetine HCl 10 mg PO 0900 11/20/17 11/25/17 History Lamotrigine 200 mg PO BEDTIME 11/20/17 11/25/17 History Levothyroxine Sodium [Levothroid] 50 mcg PO DAILY 11/20/17 11/25/17 History Metoclopramide HCl 10 mg PO TID 11/20/17 11/25/17 History Ondansetron HCl 8 mg PO Q8HR PRN 11/20/17 11/25/17 History Propranolol HCl 10 mg PO BID 11/20/17 11/25/17 History Insulin Aspart [Novolog] 100 unit SQ DAILY #1 cartridge 11/22/17 11/25/17 Rx Magnesium Oxide [Mag-Ox] 400 mg PO DAILY #7 tab 11/22/17 11/25/17 Rx Allergies/Adverse Reactions: Allergies 3 Allergy/AdvReac Type Severity Reaction Status Date / Time hydromorphone [From Dilaudid] AdvReac ITCHING Verified 11/26/17 18:29 Results - Labs CBC and BMP: 11/27/17 04:30 11/27/17 04:30 Exam - Vitals Vital Signs: Vital Signs Temperature 97.2 F Temperature Source Temporal Artery Scan Pulse Rate [Apical] 80 Pulse Rate [Pulse Oximeter] 79 Pulse Rate 77 Respiratory Rate 18 Blood Pressure [Right Arm] 149/111 Blood Pressure [Left Arm] 103/65 Blood Pressure 108/64 Pulse Ox 98 Oxygen Delivery Method Room Air Height 5 ft 1 in Weight 143 lb 11.2 oz - General General Appearance: No Acute Distress, Cooperative - Eye Eye Exam: POSITIVE: PERRL - Respiratory Respiratory Exam: POSITIVE: Clear to Auscultation - Bilaterally, Breathing Non Labored - Cardiovascular Cardiovascular Exam: POSITIVE: RRR - GI/Abdominal GI/Abdominal Exam: POSITIVE: Non Tender, Non Distended Assessment and Plan - Patient Problems (1) Diarrhea Current Visit: Yes Status: Acute Code(s): R19.7 - Diarrhea, unspecified (2) Nausea and vomiting Current Visit: Yes Status: Acute Code(s): R11.2 - Nausea with vomiting, unspecified - Assessment / Plan Additional Assessment/Plan Details: Would recommend the patient have an EGD. The risk and potential complications of the procedure were discussed with the patient.. They understood this. Also discussed alternatives diagnostic and treatment options. Will get the EGD set up at the first available date. CPT 85857 The patient will need a colonoscopy. The risks of the procedure and benefits were discussed with the patient. I have discussed the pathophysiology between polyps and colon cancer. I also discussed the reasons why we use a colonoscopy for screening method versus the other screening methods are available. The patient like to proceed with a colonoscopy, The procedure reset up at first available date. CPT 58675
[2017-11-27] MEDS ORDERED: LIDOCAINE W/ SODIUM BICARB 0.5 ML SYR SUBD PRN (16:59)
[2017-11-27] MEDS: lamoTRIgine 100 MG TABLET PO SCH (20:00)
[2017-11-27] MEDS: Lactated Ringers 1,000 ML PRIMARY IV SCH (22:14)
[2017-11-28] MEDS ORDERED: DEXTROSE 50%-WATER SYRINGE 50 ML SYRINGE IVP ONE ×3 (01:11→22:12)
[2017-11-28] MEDS ORDERED: Insulin Glargine SoloStar Inj 100 UNIT/ML INSULN.PEN SUBCUT SCH (01:15)
[2017-11-28] MEDS: diphenhydrAMINE 50 MG/1 ML VIAL IVP PRN ×3 (02:21→18:17)
[2017-11-28] MEDS: MORPHINE SULFATE 4 MG/1 ML IVP PRN ×2 (02:21→06:13)
[2017-11-28] MEDS: Metoclopramide Inj 10 MG/2 ML VIAL IVP SCH ×2 (02:33→06:36)
[2017-11-28] MEDS: DEXTROSE 50%-WATER SYRINGE 50 ML SYRINGE IVP ONE ×2 (05:13→10:03)
[2017-11-28 05:16] LABS: BASOPHILS # (AUTO) 0.03 10*3/UL; BASOPHILS % (AUTO) 0.4 % (0-1); EOSINOPHILS # (AUTO) 0.59 10*3/UL; EOSINOPHILS % (AUTO) 7.9 % (0-8); Hematocrit [HCT] 32.5 % (37.0-47.0); Hemoglobin [HGB] 10.7 g/dL (12.0-16.0); LYMPHOCYTES # (AUTO) 1.95 10*3/uL; MEAN CORPUSCULAR HEMOGLOBIN 27.2 PG (27-31); MEAN CORPUSCULAR HGB CONC 32.9 g/dL (33-37); MEAN CORPUSCULAR VOLUME 82.7 FL (81-99); MEAN PLATELET VOLUME 9.5 FL (7.4-12.2); MONOCYTES # (AUTO) 0.37 10*3/UL (0.3-0.8); MONOCYTES % (AUTO) 4.9 % (5-15); NEUTROPHILS # (AUTO) 4.51 10*3/UL; NEUTROPHILS % (AUTO) 60.3 % (50-80); RED BLOOD COUNT 3.93 10^6/uL (4.20-5.40)
[2017-11-28 05:17] LABS: PLATELET MORPHOLOGY COMMENT NORMAL MORPHOLOGY (NORM); RBC MORPHOLOGY COMMENT NORMAL MORPHOLOGY (NORM); WBC MORPHOLOGY COMMENT NORMAL MORPHOLOGY (NORM)
[2017-11-28 05:20] LABS: BUN/CREATININE RATIO 10.71 (6-20); SERUM ALBUMIN 2.9 g/dL (3.5-4.8)
[2017-11-28] MEDS ORDERED: GLUCAGON EMERGENCY KIT 1 MG KIT IM ONE (05:53)
[2017-11-28] MEDS: Glucagon Inj Vial 1 MG/ML VIAL IM PRN (05:59)
[2017-11-28] MEDS ORDERED: D5-1/2NS 1,000 ML PRIMARY IV SCH (06:15)
[2017-11-28] MEDS: Sodium Chloride 0.9% 1,000 ML PRIMARY IV SCH ×3 (06:34→17:25)
[2017-11-28] MEDS ORDERED: PROPOFOL 10 MG/1 ML (200 MG/20 ML) VIAL IV ONE (07:12)
[2017-11-28] MEDS ORDERED: Sodium Chloride 0.9% 1,000 ML ONE (07:44)
--- NOTE | 2017-11-28 08:26 | GEN.OPNOTE ---
EGD / Colonoscopy Report Surgery Date: 11/28/17 Preoperative Diagnosis: Nausea vomiting and diarrhea Postoperative Diagnosis: Nausea, diarrhea, nausea. Normal-appearing stomach. Normal large intestine and rectum Procedure: Colonoscopy. EGD with biopsy Surgeon: Noel Britton MD Anesthesia Provider: Angela Hernandez CRNA Anesthesia Type: MAC Indications: This is a young female who has insulin dependent diabetes who presented with nausea vomiting and diarrhea. EGD Findings: Esophagus: Olympus video EGD scope inserted in posterior pharynx. Guided esophagus under direct visualization. Patient GE junction approximately 38 cm from incisors. Patient had what appeared to be gastric mucosa coming up above the Z line but a biopsy this make sure was not Anderson's esophagitis. Biopsies at 36 cm GE Junction : GE junction approximately 38 cm from incisors Fundus : With the scope was placed in the stomach patient a large amount of fluid in the stomach I was able to aspirate out 500 mL of fluid. Scope was then retroflexed on itself revealing normal fundus Body : Body the stomach is within normal limits no polyps tumors or cancers Prepyloric : Prepyloric area was normal. Scope passed easily beyond the pylorus. Small Intestine : First second third and fourth portion of duodenum appeared be normal A lubricated flexible upper endoscope was inserted and passed through the esophagus and stomach into the duodenum. Colonsocopy Findings: Prep : Excellent Cecum : Lives video colonoscopy scope inserted over the cecum. Appendiceal orifice and ileocecal valve clearly identified. Is able to cannulate the terminal ileum and the terminal ileum appeared to be completely normal patient indicating Crohn's disease or ulcerative colitis Ascending : Ascending colon was normal no polyps, tumors or cancers no inflammatory process seen Transverse : Transverse colon was normal no polyps, tumors, or cancers seen. No inflammatory process seen Sigmoid : Descending and sigmoid colon within normal limits no polyps, tumors or cancer seen. Again no inflammatory processes seen Rectum : Rectum free from disease. Digital Rectal Exam : A lubricated flexible colonoscope was inserted and passed to the blind end of the cecum. Additional Details: Patient is endoscopies were completely normal. If still concerned about gastroparesis would order a gastric emptying study. This could be done as an outpatient and managed by her primary care provider Endoscopy Procedures - Endoscopy Procedures Primary Endoscopy Procedure: 15692 : Colonoscopy Secondary Endoscopy Procedure: 81114 : EGD w/[facility]osp[facility]
--- NOTE | 2017-11-28 08:46 | CRNA.PROGR ---
Anesthesia Time - - Start date: 11/28/17 End date: 11/28/17 - Procedure/Recovery Time Anesthesia : Time In: 07:58 Anesthesia : Time Out: 08:27 Anesthesia : Total Time: 29 - Total Anesthesia Time Total Anesthesia Time (minutes): 29 - Other Weight: 65.181 kg Height: 5 ft 1 in Body Mass Index (BMI): 27.1 Physical Status: P3 (type 1 dm, chronicc diarhea-viral infections not ruled out)
--- NOTE | 2017-11-28 08:47 | CRNA.PROGR ---
Post Anesthesia Phase II - Post Anesthesia Phase II Patient Stable and Discharged To: Med/Surg Care Assumed By Surgeon: Lars Britton MD Temperature: 97.2 F Pulse Rate: 73 Respiratory Rate: 14 Blood Pressure: 87/63 Pulse Ox: 95 Total Lidia Score at Discharge: 9 Post Anesthesia Discharge Criteria Met: Yes
[2017-11-28] MEDS: LEVOTHYROXINE 50 MCG TABLET PO SCH (09:05)
[2017-11-28] MEDS: Insulin Lispro Flexpen 300 UNIT/3 ML INSULN.PEN SUBCUT SCH ×4 (09:55→20:52)
[2017-11-28] MEDS: Lactated Ringers 1,000 ML PRIMARY IV SCH ×3 (10:04→22:54)
[2017-11-28] MEDS ORDERED: Acetaminophen 1000mg Inj 1,000 MG/100 ML VIAL IV ONE (10:40)
--- NOTE | 2017-11-28 11:09 | PDOC(PROG) ---
Date and Time of Service: 11/28/2017, 1103 Interval History: Very difficult night last night. Even though we gave her a fairly low dose of Lantus, the patient continued to have intermittent episodes of hypoglycemia. She reached a low this morning of 32 although she was not symptomatic. The patient has had emergency room visits in the past for hypoglycemia. No completes of chest pain or shortness breath but does have abdominal pain. Colonoscopy negative. EGD may show evidence of Anderson's esophagitis although biopsies pending. Lots of fluid in the abdomen which to me suggests probable gastroparesis. Objective : Data - Labs CBC and BMP: 11/28/17 04:45 11/28/17 06:15 Additional Lab Results: 11/28/17 04:45 Sodium 143 Potassium 4.1 Chloride 117 H Carbon Dioxide 16 L Anion Gap 10 BUN 15 Creatinine 1.4 H Estimated GFR 45 BUN/Creatinine Ratio 10.71 Glucose 172 H Calculated Osmolality 300.0 H Calcium 8.1 L Total Bilirubin 0.2 L D AST 152 H ALT 90 H Alkaline Phosphatase 216 H Total Protein 5.8 L Albumin 2.9 L Globulin 2.9 Albumin/Globulin Ratio 1.00 L Hepatitis panel was actually negative on the . Objective : Exam - General General Appearance: No Acute Distress, Cooperative - Eye Eye Exam: No Scleral Icterus - ENT ENT Exam: Mucous Membranes Moist - Respiratory Respiratory Exam: Clear to Auscultation - Bilaterally, Breathing Non Labored - Cardiovascular Cardiovascular Exam: RRR, No Murmur, No Clicks, No Gallops, No Rubs, No JVD - GI/Abdominal GI/Abdominal Exam: Normal Bowel Sounds, Non Tender, Non Distended, Soft - Extremities Extremities Exam: No Clubbing Present, No Edema Present, No Cyanosis Present - Neurological Neurological Exam: Alert, Oriented x 3, No Facial Droop, Speech Intact / Clear, Moves All Extremities Equally Assessment and Plan - Patient Problems (1) Chronic diarrhea Current Visit: Yes Status: Acute Code(s): K52.9 - Noninfective gastroenteritis and colitis, unspecified (2) Diabetes mellitus type I Current Visit: Yes Status: Acute Code(s): E10.9 - Type 1 diabetes mellitus without complications Qualifiers: Diabetes mellitus complication status: with kidney complications Diabetes mellitus complication detail: with chronic kidney disease Chronic kidney disease stage: stage 3 (moderate) Qualified Code(s): E10.22 - Type 1 diabetes mellitus with diabetic chronic kidney disease; N18.3 - Chronic kidney disease, stage 3 (moderate) (3) Diabetic gastroparesis Current Visit: Yes Status: Acute Code(s): E11.43 - Type 2 diabetes mellitus with diabetic autonomic (poly)neuropathy; K31.84 - Gastroparesis (4) Diabetic neuropathy Current Visit: Yes Status: Acute Code(s): E11.40 - Type 2 diabetes mellitus with diabetic neuropathy, unspecified Qualifiers: Diabetes mellitus type: type 1 Diabetes mellitus complication detail: diabetic autonomic neuropathy Qualified Code(s): E10.43 - Type 1 diabetes mellitus with diabetic autonomic (poly)neuropathy (5) Hypothyroidism Current Visit: Yes Status: Chronic Code(s): E03.9 - Hypothyroidism, unspecified Qualifiers: Hypothyroidism type: acquired Qualified Code(s): E03.9 - Hypothyroidism, unspecified (6) Hypertension Current Visit: Yes Status: Chronic Code(s): I10 - Essential (primary) hypertension Qualifiers: Hypertension type: essential hypertension Qualified Code(s): I10 - Essential (primary) hypertension (7) Hypokalemia Current Visit: Yes Status: Resolved Code(s): E87.6 - Hypokalemia (8) Fatty liver disease, nonalcoholic Current Visit: Yes Status: Acute Code(s): K76.0 - Fatty (change of) liver, not elsewhere classified (9) Acute renal failure Current Visit: Yes Status: Resolved Code(s): N17.9 - Acute kidney failure, unspecified Qualifiers: Acute renal failure type: with acute tubular necrosis Qualified Code(s): N17.0 - Acute kidney failure with tubular necrosis - Assessment / Plan Additional Assessment/Plan Details: I discussed with the dietitian Elisha, and we will go ahead and keep the pump at 0 for her basal rate until the Lantus wears off about 1 AM, then go with 0.25 units per hour, until 7 AM, and then increase to 2 units per hour as it was before. The pattern we've been noticing is that she is hypoglycemic in the early hours of the morning so hopefully this will help avoid that but still give her that basal insulin that she needs. Adjust the pump through the weekend. Fascial come in and help us with that. Continuous glucose monitoring really needs to be done on an outpatient basis to continue to manage patient's iron levels. I suspect the chronic diarrhea is actually related to postcholecystectomy diarrhea. She's had a great response to the cholestyramine, so I think that should be continued. I think her DKA episodes that she reports historically that have been at a high number over the past 2 years are related to her getting dehydrated from her diarrhea. Hopefully we can help resolve those episodes. Get a study to prove delayed gastric emptying and gastroparesis. If we prove gastroparesis which I think we will, then I think we can start working on diet education, 6 small meals throughout the day, and a more mechanical soft diet. She has been on Reglan, but I think long-term this is not a great solution, so she may be a candidate for a PEG tube for gastric decompression in the future. I encouraged her to avoid narcotics as much as possible as this can make her gastroparesis significantly worse despite relating some pain. Watch blood sugars through the day and adjust as necessary. Complex abdominal pain issues with probable diabetic gastroparesis and postcholecystectomy diarrhea. Plan above was discussed with patient and her fianc and they agreed with the plan above.
[2017-11-28] MEDS: FAMOTIDINE 40 MG TABLET PO SCH (11:15)
[2017-11-28] MEDS: MAGNESIUM OXIDE 400 MG TABLET PO SCH (11:15)
[2017-11-28] MEDS: Propranolol Tab 10 MG TAB PO SCH ×2 (11:15→20:43)
[2017-11-28] MEDS: HYDROcodone-APAP 5 MG -325 MG TABLET PO PRN ×2 (11:15→14:50)
[2017-11-28] MEDS: FLUoxetine 20 MG CAPSULE PO SCH (11:15)
[2017-11-28] MEDS: CHOLESTYRAMINE/SUCROSE 4 GM PACKET PO SCH (11:16)
[2017-11-28] MEDS: ARIPIPRAZOLE 15 MG PO SCH (11:37)
[2017-11-28] MEDS: BECLOMETHASONE DIPROPIONATE IH SCH ×2 (11:37→20:50)
[2017-11-28] MEDS: INSULIN ASPART 100 UNIT SQ SCH (13:21)
[2017-11-28] MEDS ORDERED: QUEtiapine Tab 25 MG TAB PO ONE (13:50)
[2017-11-28] MEDS: Metoclopramide Tab 10 MG TAB PO SCH ×2 (14:49→20:43)
[2017-11-28] MEDS: lamoTRIgine 100 MG TABLET PO SCH (20:42)
[2017-11-29] MEDS ORDERED: D5-NS 1,000 ML PRIMARY IV SCH
[2017-11-29] MEDS: Glucagon Inj Vial 1 MG/ML VIAL IM PRN (00:15)
[2017-11-29] MEDS: diphenhydrAMINE 50 MG/1 ML VIAL IVP PRN ×3 (00:19→13:20)
[2017-11-29 05:58] LABS: BUN/CREATININE RATIO 13.33 (6-20); SERUM ALBUMIN 2.8 g/dL (3.5-4.8)
[2017-11-29] MEDS: Insulin Lispro Flexpen 300 UNIT/3 ML INSULN.PEN SUBCUT SCH (08:16)
[2017-11-29] MEDS: LEVOTHYROXINE 50 MCG TABLET PO SCH (09:57)
[2017-11-29] MEDS ORDERED: Magnesium Sulfate 2gm (Premix) 2 GM/50 ML BAG IV ONE (10:30)
[2017-11-29] MEDS: CHOLESTYRAMINE/SUCROSE 4 GM PACKET PO SCH (10:51)
[2017-11-29] MEDS: FLUoxetine 20 MG CAPSULE PO SCH (10:52)
[2017-11-29] MEDS: FAMOTIDINE 40 MG TABLET PO SCH (10:52)
[2017-11-29] MEDS: ARIPIPRAZOLE 15 MG PO SCH (10:52)
[2017-11-29] MEDS: Metoclopramide Tab 10 MG TAB PO SCH ×2 (10:53→15:13)
[2017-11-29] MEDS: MAGNESIUM OXIDE 400 MG TABLET PO SCH (10:53)
[2017-11-29] MEDS: BECLOMETHASONE DIPROPIONATE IH SCH (10:54)
[2017-11-29] MEDS: INSULIN ASPART 100 UNIT SQ SCH (10:56)
[2017-11-29 11:29] VITALS: BP 154/97; TEMP 97.2; O2SAT 94
[2017-11-29] MEDS: Magnesium Sulfate 1gm (Premix) 1 GM/100 ML BAG IV SCH ×2 (12:12→13:24)
[2017-11-29] MEDS ORDERED: SODIUM POLYSTYRENE SULFONATE 15 GM/60 ML PO ONE (12:31)
--- NOTE | 2017-11-29 12:31 | DCSUMMARY ---
Hospitalization Summary Hospital Course: Final Discharge Diagnosis: Current Visit Problems Problem Status Onset Code Hypothyroidism Chronic E03.9 Hypertension Chronic I10 Renal insufficiency Acute N28.9 Acute renal failure Resolved N17.9 Diabetes mellitus type I Acute E10.9 Diabetic gastroparesis Acute E11.43, K31.84 Diabetic neuropathy Acute E11.40 Hypokalemia Resolved E87.6 Fatty liver disease, nonalcoholic Acute K76.0 Nausea and vomiting Acute R11.2 Renal failure (ARF), acute on chronic Acute N17.9, N18.9 Chronic diarrhea Acute K52.9 Diarrhea Acute R19.7 Diagnostic Data, Laboratory Data, and Procedures of Signifigance: Laboratory Results 11/29/17 Range/Units 04:45 Sodium 136 D (135-145) meq/L Potassium 5.8 H D (3.8-5.2) meq/L Chloride 108 (98-112) meq/L Carbon Dioxide 21 L (23-33) meq/L Anion Gap 7 (5-20) BUN 20 (7-22) mg/dL Creatinine 1.5 H (0.50-1.20) mg/dL Estimated GFR 42 (>60 ml/min/1.73m(2)) BUN/Creatinine Ratio 13.33 (6-20) Glucose 192 H (78-110) mg/dL Calculated Osmolality 289.0 (267-292) mOsm/kg Calcium 8.2 L (8.7-10.7) mg/dL Magnesium 1.7 (1.6-2.4) mg/dL Total Bilirubin 0.2 L (0.3-1.2) mg/dL AST 68 H (8-39) IU/L ALT 84 H (9-52) IU/L Alkaline Phosphatase 222 H (38-126) IU/L Total Protein 5.4 L (6.1-8.0) g/dL Albumin 2.8 L (3.5-4.8) g/dL Globulin 2.6 (2.50-4.10) g/dL Albumin/Globulin Ratio 1.00 L (1.3-2.0) mg/g History and Physical pertinent to Admission: Past Medical History Medical History: 1. Diabetes type I on insulin, normally on a insulin pump. 2. Hypothyroidism. 3. Depression and PTSD. 4. Recent history of emphysematous urinary tract infection/cystitis. 5. Fatty liver disease, apparently had some sort of biopsy in the past with records not available. 6. Diabetic gastroparesis. 7. Peripheral neuropathy related to diabetes. 8. History of hypertension and tachycardia Surgical History: 1. History of cholecystectomy. 2. History of previous bone spur surgery Family History: Reviewed an Not Pertinent Pertinent Family History: She denies any history of diabetes or heart disease in the family. Past Social History: She does not smoke does not drink nor drugs. She moved recently to the area from [place]. She is engaged. Tobacco Use: Never Smoker In the Past 12 Months, Have Used or Abuse Any of the Following Substance: None Alcohol Use: None Course of Hospitalization: This very pleasant 27-year-old female with past medical history significant for type I diabetes, hypothyroidism. She is from [place] and just moved here in [place] in the past few months she has had multiple emergency room admissions in the last month at least 3 or 4 in our hospital for hypoglycemia and morning Brad for abdominal pain nausea and vomiting diagnosed with emphysematous cystitis. Was discharged from that hospital and a few days later is complaining of nausea and vomiting which are getting worse and diarrhea which did not respond to Zofran. She is also taking Reglan and that does not work either. She does have the abdominal pain another reason why she was admitted mostly in the midepigastric area lipase was negative and in the past the month she received a 3 CT scans to her which were done at this facility this month and all have been negative for pancreatitis. Also has elevated LFTs. Had EGD colonoscopy here at our facility which were both negative. Gastric emptying study was done which was abnormal. Over the last 3 days and it is been very difficult to adjust her insulin pump where she had multiple episodes of hypoglycemia and the on on a drip with glucose in it. She is also also has a acute renal failure with proteinuria and hyperkalemia potassium 5.8 today she has never seen a math interventionist. In summary I believe this type I diabetic with the insulin pump is having hypoglycemia and hypoglycemic episodes from severe delayed gastric emptying she might need a PEG tube also removed the pump and still operator to adjust the pump or maybe not even use it. Also needs to see a math interventionist for her acute on chronic renal failure and proteinuria she is already at stage III and is not on an YUKI inhibitor or any other medications that would prevent renal failure I have talked to both her. The patient and the fiance at the bedside. They have said "" it is about time that somebody cared and did something for many and us" I gave him the option to be transferred to [place] where she would see her the pump and still operator and the math interventionist and ultimately discuss the PEG tube placement may be I do not have a math interventionist here in my hospital for pump and still operator. They stated that they do not want to go to [place] and will like to go to [place] because they are already been in [place] and they were not satisfied I spoken to Dr. Ozuna at [facility] which agreed with the transfer and was very gracious in accepting this patient to offer some help and coordination of care with these multiple specialties. The patient is willing to follow-up in [place] as well. I will give her Kayexalate check EKG also gave her 2 mg of magnesium On the date of discharge, the patient was examined: Gen.: No acute distress, alert, nontoxic Heart: Regular rate and rhythm, no murmurs, clicks, gallops, or rubs Lungs: Clear to auscultation bilaterally, breathing is nonlabored Abdomen/GI: Normal tones on auscultation, soft, nontender, nondistended Musculoskeletal/extremities: No clubbing, cyanosis, or edema Vitals reviewed and are listed below Vital Signs (24 hrs) Temp Pulse Pulse Pulse Resp BP Pulse Ox 11/29/17 11:29 97.2 F 86 18 154/97 94 11/29/17 07:30 97.6 F 84 18 137/93 93 11/29/17 04:01 98 F 88 16 122/82 11/29/17 03:00 99 11/29/17 00:24 98.1 F 96 18 123/77 95 11/28/17 21:38 97 11/28/17 20:11 97.7 F 83 18 104/65 97 11/28/17 19:00 86 87 11/28/17 17:53 80 80 11/28/17 16:02 98 F 80 12 99/50 94 Assessment and Plan: 1. As per discharge assessments above 2. Disposition: Transferred to [facility] 3. Condition on discharge, stable and improved. 4. Diet: regular diet 5. Activities: resume normal activities 6. Follow-Up: 1. PCP 2. 7. Medications at the Time of Discharge: Active Medications Generic Name Dose Route Start Last Admin Trade Name Freq PRN Reason Stop Dose Admin Acetaminophen 650 mg 11/25/17 23:40 11/28/17 22:54 Tylenol PO 650 mg Q6H PRN Administration Pain or Fever Hydrocodone Bitart/Acetaminophen 1 - 2 tab 11/28/17 10:41 11/28/17 14:50 [place] 5/325 Tab PO 2 tab Q4H PRN Administration Pain Calcium Carbonate 1 - 2 tab 11/25/17 23:40 Tums PO Q6H PRN Heartburn Cholestyramine Resin 4 gm 11/27/17 09:00 11/29/17 10:51 Questran Packet PO 4 gm DAILY MENDEZ Administration Dextrose 30 - 40 ml 11/26/17 17:46 Dextrose 50% Inj IVP Q15M PRN BG < 70 unable to take oral Diphenhydramine HCl 50 mg 11/26/17 00:10 11/29/17 06:52 Benadryl Inj IVP 50 mg Q6H PRN Administration pruritis Docusate Sodium 100 mg 11/25/17 23:40 Colace PO BID PRN Constipation Famotidine 40 mg 11/26/17 09:00 11/29/17 10:52 Pepcid PO 40 mg DAILY MENDEZ Administration Fluoxetine HCl 20 mg 11/26/17 19:30 11/29/17 10:52 Prozac PO 20 mg DAILY MENDEZ Administration Glucose 15 - 20 gm 11/26/17 17:46 Insta-Glucose Gel PO Q15M PRN BG < 70 Magnesium Sulfate/Dextrose 1 gm in 100 mls @ 100 mls/hr 11/29/17 11:36 12:12 Magnesium Sulfate 1gm (Premix) IV 11/29/17 13:35 100 mls/hr Q1H MENDEZ Administration Lamotrigine 200 mg 11/26/17 21:00 11/28/17 20:42 Lamictal Tab PO 200 mg BEDTIME MENDEZ Administration Levothyroxine Sodium 50 mcg 11/26/17 05:30 11/29/17 09:57 Synthroid PO Not Given DAILY@0530 MENDEZ Lidocaine HCl 0.5 ml 11/25/17 23:40 Lidocaine Buffered Inj SUBD ONCE PRN IV Starts Lidocaine HCl 0.5 ml 11/27/17 16:59 Lidocaine Buffered Inj SUBD ONCE PRN IV Starts Magnesium Oxide 400 mg 11/26/17 09:00 11/29/17 10:53 Mag-Ox PO 400 mg DAILY MENDEZ Administration Metoclopramide HCl 10 mg 11/28/17 15:00 11/29/17 10:53 Reglan PO 10 mg TID MENDEZ Administration Non-Formulary Medication 100 unit 11/26/17 09:00 11/29/17 10:56 Insulin Aspart [Novolog] SQ Not Given DAILY MENDEZ Non-Formulary Medication 2 inh 11/26/17 21:00 11/29/17 10:54 Beclomethasone Dipropionate [Qvar] IH 2 inh BID MENDEZ Administration Non-Formulary Drug ( 15 mg 11/26/17 19:00 11/29/17 10:52 Aripiprazole 15 Mg) PO 15 mg DAILY MENDEZ Administration Ondansetron HCl 4 mg 11/25/17 23:40 Zofran Inj IVP Q4H PRN NAUSEA / VOMITING 8. Time, care, counseling and coordination of care for this discharge is greater than 30 minutes. Exam - Vitals Vital Signs: Vital Signs Temperature 97.2 F Temperature Source Temporal Artery Scan Pulse Rate [Apical] 80 Pulse Rate [Pulse Oximeter] 86 Pulse Rate 99 Respiratory Rate 18 Blood Pressure [Right Arm] 154/97 Blood Pressure [Left Arm] 110/71 Blood Pressure 87/63 Pulse Ox 94 Oxygen Delivery Method Room Air Height 5 ft 1 in Weight 151 lb
--- NOTE | 2017-11-29 12:42 | EKG ---
[address] [place] [address] Measurements Intervals [place] Rate: 87 P: 31 MO: 232 QRS: 114 QRSD: 109 T: 23 QT: 389 QTc: 433 Interpretive Statements SINUS RHYTHM WITH FIRST DEGREE AV BLOCK MARKED RIGHT AXIS DEVIATION [QRS AXIS > 100] POSSIBLE ANTERIOR MYOCARDIAL INFARCTION OF INDETERMINATE AGE Compared to ECG 11/26/2017 00:44:05 First degree AV block now present Right-axis deviation now present Myocardial infarct finding still present Electronically Signed On 11-30-17 10:10:00 MDT by Shan Escobar [email or web address]
[2017-11-29 13:37] LABS: SERUM ALBUMIN 3.3 g/dL (3.5-4.8)
[2017-11-29] MEDS ORDERED: Insulin Lispro Flexpen 300 UNIT/3 ML INSULN.PEN SUBCUT ONE ×2 (13:54→15:25)
[2017-11-29] MEDS ORDERED: CALCIUM GLUCONATE 100 MG/1 ML - 10 ML IVP PRN (15:10)
[2017-11-29] MEDS ORDERED: Calcium Gluconate Inj 1,000 MG in Sodium Chloride 0.9% 100 ML IV PRN (15:17)
[2017-11-29] MEDS ORDERED: ALBUTEROL SULFATE 2.5 MG/3 ML NEB ONE ×2 (15:27→15:31)
[2017-11-29] MEDS ORDERED: SODIUM CL 0.9% FOR INH 3 ML NEB NEB ONE (15:31)
[2017-11-29 15:39] VITALS: RESP 20
[2017-11-29] MEDS ORDERED: FUROSEMIDE 10 MG/1 ML - 4 ML IVP ONE (15:39)
[2017-11-29] MEDS ORDERED: LIDOCAINE HCL 2 % 10 ML JELLY URO-JECT TOPICAL PRN (16:09)
[2017-11-29 16:20] LABS: BUN/CREATININE RATIO 13.12 (6-20)
--- NOTE | 2017-12-01 00:09 | DI ---
Tc-99 SULFUR COLLOID GASTRIC EMPTYING SCAN, 11/29/2017 7:00 AM : Clinical History: Diabetes and abdominal pain. Previous Related Exam: MRI abdomen performed November 27, 2017 The patient was given oatmeal mixed with 1.91 mCi of Tc-99 sulfur colloid. Sequential anterior imagin g at one minute intervals out to 90 minutes was performed. The duration of the lag time before emptyi ng begins is 90 minutes. There was no appreciable gastric emptying throughout the entire examination. There was actually increased counts from the beginning to the end of the study. Reading: Prolonged gastric emptying time without any significant emptying over a 90 minute period. ICD9:
[2017-12-01 08:10] LABS: NEUTROPHIL SPECIFIC ANTIBODIES Negative (Negative)
== END 2017-11-29 14:26 | disposition short-term general hospital (02) | DRG 700 ==
LOC: ER 19:58 → MED/SURG 23:33 → OPS 11-28 07:49 → MED/SURG 11-28 08:50 → UNDODISIN 11-29 14:26
PROVIDERS: ADMIT Family Medicine; ATTEND Family Medicine

== ENCOUNTER 2019-02-16 00:07 | Inpatient (IN) ==
[2019-02-16] MEDS ORDERED: PANTOPRAZOLE IV 40 MG VIAL IVP ONE (00:21)
[2019-02-16] MEDS ORDERED: Prochlorperazine Edisylate Inj 10mg/2ml vial IVP ONE (00:21)
[2019-02-16] MEDS ORDERED: Sodium Chloride 0.9% 1,000 ML PRIMARY IV ONE ×4 (00:21→17:24)
[2019-02-16] MEDS ORDERED: diphenhydrAMINE 50 MG/1 ML VIAL IVP ONE ×2 (00:23→03:21)
[2019-02-16 01:07] LABS: BASOPHILS # (AUTO) 0.08 10*3/UL; BASOPHILS % (AUTO) 0.8 % (0-1); EOSINOPHILS # (AUTO) 0.61 10*3/UL; EOSINOPHILS % (AUTO) 5.9 % (0-8); Hematocrit [HCT] 26.3 % (37.0-47.0); Hemoglobin [HGB] 8.5 g/dL (12.0-16.0); LYMPHOCYTES # (AUTO) 1.21 10*3/uL; MEAN CORPUSCULAR HGB CONC 32.3 g/dL (33-37); MEAN CORPUSCULAR VOLUME 83.2 FL (81-99); MONOCYTES # (AUTO) 0.79 10*3/UL (0.3-0.8); MONOCYTES % (AUTO) 7.6 % (5-15); NEUTROPHILS # (AUTO) 7.65 10*3/UL; NEUTROPHILS % (AUTO) 73.8 % (50-80); RED BLOOD COUNT 3.16 10^6/uL (4.20-5.40)
[2019-02-16 01:12] LABS: PLATELET MORPHOLOGY COMMENT NORMAL MORPHOLOGY (NORM); RBC MORPHOLOGY COMMENT NORMAL MORPHOLOGY (NORM); VENOUS PH 7.43 (7.32-7.42); WBC MORPHOLOGY COMMENT NORMAL MORPHOLOGY (NORM)
[2019-02-16 01:27] LABS: SERUM ALBUMIN 3.1 g/dL (3.5-4.8)
[2019-02-16] MEDS ORDERED: INSULIN REGULAR, HUMAN 100 UNIT/1 ML - 3 ML IV ONE ×2 (03:11→17:24)
[2019-02-16] MEDS ORDERED: Insulin Lispro Flexpen 300 UNIT/3 ML INSULN.PEN SUBCUT ONE (03:27)
[2019-02-16] MEDS ORDERED: Insulin Lispro Flexpen 300 UNIT/3 ML INSULN.PEN SUBCUT SCH (03:30)
[2019-02-16] MEDS ORDERED: LIDOCAINE W/ SODIUM BICARB 0.5 ML SYR SUBD PRN ×3 (03:34→17:24)
[2019-02-16] MEDS: ONDANSETRON 4 MG/2 ML VIAL IVP PRN ×2 (04:31→19:35)
[2019-02-16] MEDS: Sodium Chloride 0.9% 1,000 ML PRIMARY IV SCH ×5 (04:32→21:32)
[2019-02-16] MEDS: HEPARIN 5000 UNIT/1 ML SUBCUT SCH ×3 (04:38→21:01)
[2019-02-16] MEDS: Insulin Lispro Flexpen 300 UNIT/3 ML INSULN.PEN SUBCUT SCH ×5 (05:52→21:35)
[2019-02-16] MEDS: LEVOTHYROXINE 50 MCG TABLET PO SCH (06:00)
[2019-02-16] MEDS: PANTOPRAZOLE IV 40 MG VIAL IVP SCH (07:29)
[2019-02-16] MEDS ORDERED: BECLOMETHASONE DIPROPIONATE INH SCH ×2 (09:00→19:00)
[2019-02-16] MEDS ORDERED: ARIPIPRAZOLE 15 MG PO SCH (09:00)
[2019-02-16] MEDS: Sodium Bicarbonate Tab 650 MG TAB PO SCH (09:22)
[2019-02-16] MEDS: FLUoxetine 20 MG CAPSULE PO SCH (09:22)
[2019-02-16] MEDS: MAGNESIUM OXIDE 400 MG TABLET PO SCH (09:23)
[2019-02-16] MEDS: Metoclopramide Tab 10 MG TAB PO SCH ×3 (09:23→21:01)
[2019-02-16] MEDS: FERROUS GLUCONATE 324 MG TABLET PO SCH (09:23)
[2019-02-16] MEDS: Propranolol Tab 10 MG TAB PO SCH ×2 (09:24→21:01)
[2019-02-16] MEDS: Insulin Glargine SoloStar Inj 100 UNIT/ML INSULN.PEN SUBCUT SCH ×2 (09:24→21:36)
[2019-02-16] MEDS: BECLOMETHASONE DIPROPIONATE INH SCH (09:54)
[2019-02-16] MEDS ORDERED: Influenza 19-20 Vaccine (6mo+) 60 MCG/0.5 ML SYRINGE IM ONE (10:00)
[2019-02-16] MEDS: diphenhydrAMINE 50 MG/1 ML VIAL IVP PRN ×2 (11:15→17:11)
[2019-02-16 16:18] LABS: BLOOD UREA NITROGEN 45 mg/dL (7-22); BUN/CREATININE RATIO 18.75 (6-20)
[2019-02-16] MEDS ORDERED: SODIUM POLYSTYRENE SULFONATE 15 GM/60 ML PO ONE (16:45)
[2019-02-16] MEDS ORDERED: Calcium Gluconate Inj 1,000 MG in Sodium Chloride 0.9% 100 ML IV ONE (16:45)
[2019-02-16] MEDS ORDERED: Glucagon Inj Vial 1 MG/ML VIAL IM PRN (17:24)
[2019-02-16] MEDS ORDERED: DEXTROSE 31 GM GEL PO PRN (17:24)
[2019-02-16] MEDS ORDERED: DEXTROSE 50%-WATER SYRINGE 50 ML SYRINGE IVP PRN (17:24)
[2019-02-16] MEDS ORDERED: Sodium Chloride 0.9% 1,000 ML PRIMARY IV SCH (17:30)
[2019-02-16] MEDS ORDERED: PANTOPRAZOLE IV 40 MG VIAL IVP SCH (17:30)
[2019-02-16] MEDS ORDERED: Insulin Regular Inj 100 UNIT in Sodium Chloride 0.9% 99 ML IV SCH (17:30)
[2019-02-16 18:39] LABS: BUN/CREATININE RATIO 17.91 (6-20)
[2019-02-16] MEDS: LORazepam 1 MG TABLET PO PRN (19:35)
[2019-02-16] MEDS ORDERED: Ondansetron ODT Tab 4 MG TAB PO PRN (19:49)
[2019-02-16] MEDS ORDERED: lamoTRIgine 100 MG TABLET PO SCH (21:00)
[2019-02-16 21:48] LABS: BUN/CREATININE RATIO 17.2 (6-20)
[2019-02-16] MEDS ORDERED: diphenhydrAMINE 25 MG CAPSULE PO PRN (22:08)
[2019-02-17 01:32] LABS: BUN/CREATININE RATIO 16.66 (6-20)
[2019-02-17] MEDS: D5-1/2NS 1,000 ML PRIMARY IV SCH ×3 (01:40→09:55)
[2019-02-17] MEDS: HEPARIN 5000 UNIT/1 ML SUBCUT SCH ×3 (03:57→20:26)
[2019-02-17] MEDS: diphenhydrAMINE 50 MG/1 ML VIAL IVP PRN ×4 (04:28→23:01)
[2019-02-17] MEDS: LEVOTHYROXINE 50 MCG TABLET PO SCH (04:44)
[2019-02-17 04:57] LABS: VENOUS PH 7.37 (7.32-7.42)
[2019-02-17 05:33] LABS: HEMOGLOBIN A1C 12.34 % (4.2-6.0)
[2019-02-17 05:36] LABS: BLOOD UREA NITROGEN 35 mg/dL (7-22); BUN/CREATININE RATIO 14.58 (6-20)
[2019-02-17] MEDS: BECLOMETHASONE DIPROPIONATE INH SCH (07:39)
[2019-02-17] MEDS: Insulin Lispro Flexpen 300 UNIT/3 ML INSULN.PEN SUBCUT SCH ×4 (07:39→17:34)
[2019-02-17] MEDS: Sodium Bicarbonate Tab 650 MG TAB PO SCH (08:23)
[2019-02-17] MEDS: Insulin Glargine SoloStar Inj 100 UNIT/ML INSULN.PEN SUBCUT SCH ×2 (08:23→20:27)
[2019-02-17] MEDS: Propranolol Tab 10 MG TAB PO SCH ×2 (08:23→20:26)
[2019-02-17] MEDS: Metoclopramide Tab 10 MG TAB PO SCH ×3 (08:23→20:27)
[2019-02-17] MEDS: FLUoxetine 20 MG CAPSULE PO SCH (08:23)
[2019-02-17] MEDS: PANTOPRAZOLE IV 40 MG VIAL IVP SCH (08:23)
[2019-02-17] MEDS: FERROUS GLUCONATE 324 MG TABLET PO SCH (08:23)
[2019-02-17] MEDS ORDERED: PANTOPRAZOLE IV 40 MG VIAL IVP SCH (09:00)
[2019-02-17] MEDS: MAGNESIUM OXIDE 400 MG TABLET PO SCH (09:55)
[2019-02-17 10:15] LABS: BUN/CREATININE RATIO 14.09 (6-20)
[2019-02-17] MEDS ORDERED: Insulin Lispro Flexpen 300 UNIT/3 ML INSULN.PEN SUBCUT SCH ×3 (11:00→18:00)
[2019-02-17] MEDS: LORazepam 1 MG TABLET PO PRN (12:16)
[2019-02-17] MEDS ORDERED: Insulin Lispro Flexpen 300 UNIT/3 ML INSULN.PEN SUBCUT PRN (12:44)
[2019-02-17] MEDS: ONDANSETRON 4 MG/2 ML VIAL IVP PRN (13:00)
[2019-02-17] MEDS ORDERED: diphenhydrAMINE 25 MG CAPSULE PO PRN (13:18)
[2019-02-17] MEDS ORDERED: DEXTROSE 50%-WATER SYRINGE 50 ML SYRINGE IVP PRN (13:18)
[2019-02-17] MEDS ORDERED: LORazepam 1 MG TABLET PO PRN (13:18)
[2019-02-17] MEDS ORDERED: ONDANSETRON 4 MG/2 ML VIAL IVP PRN (13:18)
[2019-02-17] MEDS ORDERED: Glucagon Inj Vial 1 MG/ML VIAL IM PRN (13:18)
[2019-02-17] MEDS ORDERED: Ondansetron ODT Tab 4 MG TAB PO PRN (13:18)
[2019-02-17] MEDS ORDERED: DEXTROSE 31 GM GEL PO PRN (13:18)
[2019-02-17 19:39] LABS: Hematocrit [HCT] 26.3 % (37.0-47.0); Hemoglobin [HGB] 8.2 g/dL (12.0-16.0); MEAN CORPUSCULAR HGB CONC 31.2 g/dL (33-37); MEAN CORPUSCULAR VOLUME 88.3 FL (81-99); RED BLOOD COUNT 2.98 10^6/uL (4.20-5.40)
[2019-02-17 19:40] LABS: BASOPHILS % (AUTO) 0.9 % (0-1); EOSINOPHILS # (AUTO) 0.62 10*3/UL; EOSINOPHILS % (AUTO) 8.8 % (0-8); LYMPHOCYTES # (AUTO) 1.91 10*3/uL; NEUTROPHILS # (AUTO) 3.68 10*3/UL; NEUTROPHILS % (AUTO) 52.5 % (50-80)
[2019-02-17 19:41] LABS: BASOPHILS # (AUTO) 0.06 10*3/UL; PLATELET MORPHOLOGY COMMENT NORMAL MORPHOLOGY (NORM); RBC MORPHOLOGY COMMENT NORMAL MORPHOLOGY (NORM); WBC MORPHOLOGY COMMENT NORMAL MORPHOLOGY (NORM)
[2019-02-17 19:51] LABS: BUN/CREATININE RATIO 11.66 (6-20); SERUM ALBUMIN 2.7 g/dL (3.5-4.8)
[2019-02-17] MEDS: lamoTRIgine 100 MG TABLET PO SCH (20:26)
[2019-02-17] MEDS ORDERED: Insulin Glargine SoloStar Inj 100 UNIT/ML INSULN.PEN SUBCUT SCH (21:00)
[2019-02-17] MEDS ORDERED: Ertapenem Inj 1 GM in Sodium Chloride 0.9% 100 ML IV SCH (21:00)
[2019-02-17] MEDS: MORPHINE SULFATE 2 MG/1 ML IVP PRN (21:18)
[2019-02-17] MEDS: Sodium Chloride 0.9% 1,000 ML PRIMARY IV SCH (21:40)
[2019-02-17] MEDS: Metoclopramide Inj 10 MG/2 ML VIAL IVP SCH (21:41)
[2019-02-18] MEDS: MORPHINE SULFATE 2 MG/1 ML IVP PRN ×2 (00:15→03:32)
[2019-02-18] MEDS: HEPARIN 5000 UNIT/1 ML SUBCUT SCH ×2 (03:35→12:53)
[2019-02-18] MEDS: LEVOTHYROXINE 50 MCG TABLET PO SCH (04:53)
[2019-02-18] MEDS ORDERED: PANTOPRAZOLE IV 40 MG VIAL IVP SCH (07:00)
[2019-02-18 07:13] LABS: Hematocrit [HCT] 28.2 % (37.0-47.0); Hemoglobin [HGB] 8.8 g/dL (12.0-16.0); MEAN CORPUSCULAR HGB CONC 31.2 g/dL (33-37); MEAN CORPUSCULAR VOLUME 86.2 FL (81-99); RED BLOOD COUNT 3.27 10^6/uL (4.20-5.40)
[2019-02-18 07:14] LABS: BASOPHILS # (AUTO) 0.05 10*3/UL; BASOPHILS % (AUTO) 0.8 % (0-1); EOSINOPHILS # (AUTO) 0.53 10*3/UL; EOSINOPHILS % (AUTO) 8.6 % (0-8); LYMPHOCYTES # (AUTO) 1.55 10*3/uL; MEAN PLATELET VOLUME 9.7 FL (7.4-12.2); MONOCYTES # (AUTO) 0.45 10*3/UL (0.3-0.8); MONOCYTES % (AUTO) 7.3 % (5-15); NEUTROPHILS # (AUTO) 3.53 10*3/UL; NEUTROPHILS % (AUTO) 57.2 % (50-80); PLATELET MORPHOLOGY COMMENT NORMAL MORPHOLOGY (NORM); RBC MORPHOLOGY COMMENT NORMAL MORPHOLOGY (NORM); WBC MORPHOLOGY COMMENT NORMAL MORPHOLOGY (NORM)
[2019-02-18] MEDS: diphenhydrAMINE 50 MG/1 ML VIAL IVP PRN (07:26)
[2019-02-18] MEDS: Metoclopramide Inj 10 MG/2 ML VIAL IVP SCH ×2 (07:27→12:50)
[2019-02-18] MEDS: Metoclopramide Tab 10 MG TAB PO SCH ×3 (08:00→20:49)
[2019-02-18] MEDS: FERROUS GLUCONATE 324 MG TABLET PO SCH (08:49)
[2019-02-18] MEDS: FLUoxetine 20 MG CAPSULE PO SCH (08:50)
[2019-02-18] MEDS: Insulin Lispro Flexpen 300 UNIT/3 ML INSULN.PEN SUBCUT SCH ×6 (08:50→17:16)
[2019-02-18] MEDS ORDERED: Influenza 19-20 Vaccine (6mo+) 60 MCG/0.5 ML SYRINGE IM ONE (09:00)
[2019-02-18] MEDS: Sodium Bicarbonate Tab 650 MG TAB PO SCH (09:01)
[2019-02-18] MEDS ORDERED: MAGNESIUM OXIDE 400 MG TABLET PO SCH (10:00)
[2019-02-18] MEDS: Propranolol Tab 10 MG TAB PO SCH ×2 (10:40→20:49)
[2019-02-18] MEDS: Sodium Chloride 0.9% 1,000 ML PRIMARY IV SCH (12:40)
[2019-02-18] MEDS ORDERED: oxyCODONE IR Tab 5 MG TAB PO PRN (12:48)
[2019-02-18] MEDS: Insulin Glargine SoloStar Inj 100 UNIT/ML INSULN.PEN SUBCUT SCH (20:49)
[2019-02-18] MEDS: lamoTRIgine 100 MG TABLET PO SCH (20:49)
[2019-02-19] MEDS: LEVOTHYROXINE 50 MCG TABLET PO SCH (04:52)
[2019-02-19 06:01] LABS: BUN/CREATININE RATIO 13.33 (6-20)
[2019-02-19] MEDS ORDERED: PANTOPRAZOLE 40 MG TABLET PO SCH (07:00)
[2019-02-19] MEDS ORDERED: FUROSEMIDE 20 MG TABLET PO SCH (07:00)
[2019-02-19] MEDS: FLUoxetine 20 MG CAPSULE PO SCH (08:03)
[2019-02-19] MEDS: Sodium Bicarbonate Tab 650 MG TAB PO SCH (08:03)
[2019-02-19] MEDS: Propranolol Tab 10 MG TAB PO SCH (08:04)
[2019-02-19] MEDS: FERROUS GLUCONATE 324 MG TABLET PO SCH (08:04)
[2019-02-19] MEDS: Insulin Lispro Flexpen 300 UNIT/3 ML INSULN.PEN SUBCUT SCH ×4 (08:04→12:05)
[2019-02-19] MEDS: Metoclopramide Tab 10 MG TAB PO SCH ×2 (08:04→15:31)
[2019-02-19 11:14] VITALS: BP 114/74; RESP 16; TEMP 97.1
[2019-02-19 14:59] VITALS: O2SAT 97
== END 2019-02-19 14:57 | disposition home or self-care (01) | DRG 700 ==
LOC: ER 00:07 → MED/SURG 03:26 → ICU 16:53 → MED/SURG 02-17 12:32
PROVIDERS: ADMIT Internal Medicine; ATTEND Internal Medicine